=== PATIENT | male | born 1940 | race Two or more races ===

== ENCOUNTER → 2020-11-13 12:21 | Outpatient (BNVA) | payer MEDICARE, SELFPAY | PROVIDERS: PCP Family Medicine; Referring Provider Family Medicine; Visit Provider Student in an Organized Health Care Education/Training Program | DX: M25.531 Pain in right wrist (principal); M19.041 Primary osteoarthritis, right hand | CPT/HCPCS: 99202 ==

== ENCOUNTER 2021-06-18 09:20 | Outpatient (REF) | payer MEDICARE, SELFPAY ==
[2021-06-18 10:50] LABS: MANUAL DIFF FLAG NO
[2021-06-18 11:00] LABS: Basophils Absolute Auto 0.1 X10*3/uL (0.0-0.2); Basophils Percent Auto 0.7 % (0-2); Eosinophils Absolute Auto 0.2 X10*3/uL (0.0-0.4); Eosinophils Percent Auto 2.4 % (0-4); Hematocrit 38.5 % (42-52); Hemoglobin 12.9 g/dl (14.0-18.0); Imm Gran Abs Auto 0.01 X10*3/uL (0.00-0.03); Imm Gran Pct Auto 0.1 % (0.0-0.4); Lymphocytes Absolute Auto 2.3 X10*3/uL (1.2-4.9); Mean Corpuscular HGB Conc 33.5 g/dl (31.0-36.0); Mean Corpuscular Hemoglobin 33.7 pg (27.0-33.0); Mean Corpuscular Volume 100.5 fL (80-98); Mean Platelet Volume 10.8 fL (9.4-12.4); Monocytes Percent Auto 14.6 % (2-11); Neutrophils Absolute Auto 3.4 X10*3/uL (2.0-8.3); Neutrophils Percent Auto 49.2 % (45-73); Platelet Count 182 X10*3/uL (160-400); Red Blood Count 3.83 X10*6/uL (4.60-5.80); Red Cell Distribution Width 12.2 % (11.0-16.0); White Blood Count 6.9 X10*3/uL (4.8-10.8)
[2021-06-18 11:45] LABS: Anion Gap 11 (12-20); Blood Urea Nitrogen 15 mg/dL (9-16); Calcium 9.9 mg/dL (8.4-10.2); Carbon Dioxide 29 mmol/L (22-29); Chloride 103 mmol/L (96-108); Estimated Glomerular Filt Rate 51; Sodium 138 mmol/L (135-145)
[2021-06-18 12:06] LABS: Creatinine Urine 122.17 mg/dL; Protein/Creatinine Ratio, Ur 0.08 (<0.2); Total Protein Urine Random 10 mg/dL (<12)
== END 2021-06-18 09:21 | disposition home or self-care (01) ==
LOC: HO.LAB 09:20
PROVIDERS: Visit Provider Internal Medicine Hypertension Specialist
DX: N18.31 Chronic kidney disease, stage 3a (principal)
CPT/HCPCS: 36415; 80051; 82310; 82565; 84156; 84520; 85025

== ENCOUNTER 2022-11-27 08:39 | Outpatient (REF) | payer MEDICARE, SELFPAY ==
[2022-11-27 09:42] LABS: Hematocrit 37.7 % (42.0-52.0); Hemoglobin 12.3 g/dl (14.0-18.0); Mean Corpuscular HGB Conc 32.6 g/dl (31.0-36.0); Mean Corpuscular Volume 101.1 fL (80.0-98.0); Mean Platelet Volume 10.6 fL (9.4-12.4); Platelet Count 170 X10*3/uL (160-400); Red Blood Count 3.73 X10*6/uL (4.60-5.80); Red Cell Distribution Width 12.4 % (11.0-16.0); White Blood Count 6.8 X10*3/uL (4.8-10.8)
[2022-11-27 10:05] LABS: Anion Gap 9 (12-20); Blood Urea Nitrogen 18 mg/dL (9-16); Calcium 9.4 mg/dL (8.4-10.2); Carbon Dioxide 30 mmol/L (22-29); Chloride 105 mmol/L (96-108); Estimated Glomerular Filt Rate 53; Glucose Random 168 mg/dL (60-115); Potassium 4.5 mmol/L (3.3-5.1); Sodium 139 mmol/L (135-145)
== END 2022-11-27 08:40 | disposition home or self-care (01) ==
LOC: HO.LAB 08:39
PROVIDERS: Visit Provider Internal Medicine Hypertension Specialist
DX: I12.9 Hypertensive chronic kidney disease with stage 1 through stage 4 chronic kidney disease, or unspecified chronic kidney disease (principal); N18.9 Chronic kidney disease, unspecified
CPT/HCPCS: 36415; 80048; 85027

== ENCOUNTER 2023-10-29 08:35 | Outpatient (REF) | payer MEDICARE, SELFPAY | END 2023-10-29 08:36 | disposition home or self-care (01) | LOC: HO.HHCL 08:35 | PROVIDERS: Visit Provider Family Medicine | DX: I12.9 Hypertensive chronic kidney disease with stage 1 through stage 4 chronic kidney disease, or unspecified chronic kidney disease (principal); N18.30 Chronic kidney disease, stage 3 unspecified; E11.40 Type 2 diabetes mellitus with diabetic neuropathy, unspecified; D63.1 Anemia in chronic kidney disease | CPT/HCPCS: 36415; 80048; 80061; 80076; 82043; 82306; 82570; 82607; 82728; 82746; 83036; 83540; 84439; 84443; 85025 ==

== ENCOUNTER 2023-12-31 10:30 | Outpatient (AMB) | payer OTHER, SELFPAY ==
[2023-12-31 10:36] VITALS: BP 100/70; PULSE 70; O2SAT 95
--- NOTE | 2023-12-31 10:36 | HO.NEPHOV ---
HPI HPI Comments History of Present Illness Details 83 yr old man with HTN and DM with CKD Overall doing well BP is low [facility] Medical History (Updated 12/31/23 @ 10:48 by Gee Bello MD) Thoracic aortic aneurysm without rupture Diastolic dysfunction LVH (left ventricular hypertrophy) HTN (hypertension) Diabetes Surgical History H/O hernia repair Family History Mother CVD (cardiovascular disease) Sister Breast cancer Social History Alcohol intake: former Vital Signs 12/31/23 10:36 Weight 175 lb BP 100/70 Blood Pressure Location Rt brachial Position Sitting Pulse 70 Pulse Source Pulse Oximeter Pulse Oximetry (%) 95 Oxygen Delivery Method Room Air Physical Exam Vital Signs: Last Vital Signs Pulse 70 12/31/23 10:36 BP 100/70 12/31/23 10:36 Pulse Ox 95 12/31/23 10:36 Oxygen Delivery Method Room Air 12/31/23 10:36 Const General: comfortable Nutritional Appearance: well nourished Orientation/consciousness: patient oriented x3 HEENT Head: No normal to inspection Mouth: moist mucous membranes Neck Neck: Yes supple and Yes no JVD Resp Auscultation: clear to auscultation bilaterally, no rales and rub present Cardio Jugular venous distension: no JVD Palpation: no palpable S3 and no palpable S4 Heart sounds: no rubs GI Palpation (GI): Soft to palpation and nontender Percussion: No Fluid wave present General: Yes no CVA tenderness Back/Spine/Pelvis Back: no CVA tenderness Skin General skin exam: no rashes or lesions noted Neuro General: patient oriented x3 Extrem General: Yes no pedal edema and No clubbing Assessment & Plan Assessment & Plan (1) CKD (chronic kidney disease) stage 3, GFR 30-59 ml/min: Code(s): N18.30 - Chronic kidney disease, stage 3 unspecified Plan 83 yr old man wiht HTN and CKD Creatinine has worsened BP is relatively low NO significant proteinuria Probably due to hypoperfusion from low BP Will STOP LISINOPRIL 10mg REcheck renal panel in 4 weeks Orders: Orders Basic Metabolic Panel 4 Weeks N18.30 - Chronic kidney disease, stage 3 unspecified Coding Level of Care Code Est Pt Level 4 (21498) Diagnoses CKD (chronic kidney disease) stage 3, GFR 30-59 ml/min N18.30 Results Reviewed Nephrology Results: Hgb 13.4 g/dl (14.0-18.0) L 10/29/23 WBC 6.7 X10*3/uL (4.8-10.8) 10/29/23 Plt Count 185 X10*3/uL (160-400) 10/29/23 Sodium 139 mmol/L (135-145) 10/29/23 Potassium 4.6 mmol/L (3.3-5.1) 10/29/23 Chloride 104 mmol/L (96-108) 10/29/23 Carbon Dioxide 26 mmol/L (22-29) 10/29/23 BUN 20 mg/dL (9-16) H 10/29/23 Creatinine 1.61 mg/dL (0.5-1.4) H 10/29/23 Calcium 9.7 mg/dL (8.4-10.2) 10/29/23 Urine Creatinine 93.87 mg/dL 10/29/23 Protein/Creatinin Ratio 0.08 (<0.2) 06/18/21
== END 2023-12-31 10:54 | disposition home or self-care (01) ==
PROVIDERS: PCP Family Medicine; Visit Provider Internal Medicine Hypertension Specialist
DX: N18.30 Chronic kidney disease, stage 3 unspecified (principal)
CPT/HCPCS: 99214

== ENCOUNTER → 2023-12-31 10:30 | Outpatient (BNVA) | payer OTHER, SELFPAY | PROVIDERS: PCP Family Medicine; Visit Provider Internal Medicine Hypertension Specialist | DX: N18.30 Chronic kidney disease, stage 3 unspecified (principal) | CPT/HCPCS: 99212 ==

== ENCOUNTER 2024-03-03 08:50 | Outpatient (REF) | payer OTHER, SELFPAY ==
[2024-03-03 12:30] LABS: Anion Gap 13 (12-20); Blood Urea Nitrogen 15 mg/dL (9-16); Calcium 9.8 mg/dL (8.4-10.2); Carbon Dioxide 25 mmol/L (22-29); Chloride 106 mmol/L (96-108); Estimated Glomerular Filt Rate 56; Glucose Random 135 mg/dL (60-115); Potassium 4.6 mmol/L (3.3-5.1); Sodium 139 mmol/L (135-145)
== END 2024-03-03 08:51 | disposition home or self-care (01) ==
LOC: HO.HHCL 08:50
PROVIDERS: Visit Provider Internal Medicine Hypertension Specialist
DX: N18.30 Chronic kidney disease, stage 3 unspecified (principal)
CPT/HCPCS: 36415; 80048

== ENCOUNTER 2024-03-07 13:43 | Outpatient (AMB) | payer OTHER, SELFPAY ==
--- NOTE | 2024-03-07 13:49 | HO.NEPHOV_ITS ---
Vital Signs 03/07/24 13:50 Weight 171 lb BP 112/60 Blood Pressure Location Lt brachial Position Sitting Pulse 85 Pulse Source Pulse Oximeter Pulse Oximetry (%) 97 Oxygen Delivery Method Room Air Intake Visit Reasons: CKD/ 8 weeks fu/ Confirmed Caustic Pump Operator Required: Yes Caustic Pump Operator Name: Evette [id number] Accompanied by: Self / Same As Patient Allergies No Known Allergies Allergy (Mild, Verified 03/07/24 13:51) NONE HPI Comments Details: 83 yr old man with HTN and DM with CKD Overall doing well BP was low Lisinopril was stopped ,No issues today [facility] Medical History (Updated 12/31/23 @ 10:48 by Gee Bello MD) Thoracic aortic aneurysm without rupture Diastolic dysfunction LVH (left ventricular hypertrophy) HTN (hypertension) Diabetes Surgical History H/O hernia repair Family History Mother CVD (cardiovascular disease) Sister Breast cancer Social History Alcohol intake: former Physical Exam Vital Signs: Last Vital Signs Pulse 85 03/07/24 13:50 BP 112/60 03/07/24 13:50 Pulse Ox 97 03/07/24 13:50 Oxygen Delivery Method Room Air 03/07/24 13:50 Const General: comfortable Nutritional Appearance: well nourished Orientation/consciousness: patient oriented x3 HEENT Head: No normal to inspection Mouth: moist mucous membranes Neck Neck: Yes supple and Yes no JVD Resp Auscultation: clear to auscultation bilaterally, no rales and rub present Cardio Jugular venous distension: no JVD Palpation: no palpable S3 and no palpable S4 Heart sounds: no rubs GI Palpation (GI): Soft to palpation and nontender Percussion: No Fluid wave present General: Yes no CVA tenderness Back/Spine/Pelvis Back: no CVA tenderness Skin General skin exam: no rashes or lesions noted Neuro General: patient oriented x3 Extrem General: Yes no pedal edema and No clubbing Results Reviewed Nephrology Results: Hgb 13.4 g/dl (14.0-18.0) L 10/29/23 WBC 6.7 X10*3/uL (4.8-10.8) 10/29/23 Plt Count 185 X10*3/uL (160-400) 10/29/23 Sodium 139 mmol/L (135-145) 03/03/24 Potassium 4.6 mmol/L (3.3-5.1) 03/03/24 Chloride 106 mmol/L (96-108) 03/03/24 Carbon Dioxide 25 mmol/L (22-29) 03/03/24 BUN 15 mg/dL (9-16) 03/03/24 Creatinine 1.24 mg/dL (0.5-1.4) 03/03/24 Calcium 9.8 mg/dL (8.4-10.2) 03/03/24 Urine Creatinine 93.87 mg/dL 10/29/23 Protein/Creatinin Ratio 0.08 (<0.2) 06/18/21 Assessment & Plan Assessment & Plan (1) CKD (chronic kidney disease) stage 3, GFR 30-59 ml/min: Code(s): N18.30 - Chronic kidney disease, stage 3 unspecified Category: Medical Plan 83 yr old man wiht HTN and CKD Creatinine is back to baseline after stopping Lisinopril BP is better controlled NO significant proteinuria Keep BP < 130/80 Avoid nephrotoxins Stay on low salt diet Coding Level of Care Code Est Pt Level 4 (00743) Diagnoses CKD (chronic kidney disease) stage 3, GFR 30-59 ml/min N18.30
[2024-03-07 13:50] VITALS: BP 112/60; PULSE 85; O2SAT 97
== END 2024-03-07 14:07 | disposition home or self-care (01) ==
PROVIDERS: PCP Family Medicine; Visit Provider Internal Medicine Hypertension Specialist
DX: N18.30 Chronic kidney disease, stage 3 unspecified (principal)
CPT/HCPCS: 99214

== ENCOUNTER → 2024-03-07 13:43 | Outpatient (BNVA) | payer OTHER, SELFPAY | PROVIDERS: PCP Family Medicine; Visit Provider Internal Medicine Hypertension Specialist | DX: E11.22 Type 2 diabetes mellitus with diabetic chronic kidney disease (principal); I12.9 Hypertensive chronic kidney disease with stage 1 through stage 4 chronic kidney disease, or unspecified chronic kidney disease; N18.30 Chronic kidney disease, stage 3 unspecified | CPT/HCPCS: 99212 ==

== ENCOUNTER → 2024-04-15 14:30 | Outpatient (REF) | payer OTHER, SELFPAY ==
--- NOTE | 2024-04-15 14:33 | CA_ITS ---
Transthoracic Echocardiogram Patient (Last, First, Middle): Car Hartmann, Gender: Male Date of : 1940 Age: 83 Procedure Date: 04/15/2024 Procedure Type: Transthoracic Echocardiogram Location: OP Height: 172.72 cm Weight: 77.57 kg BSA: 1.91 m2 Heart Rate: 84 bpm BP: 132 / 80 mmHg Instructional Paraprofessional: Referring MD: Eva Rosas DO Symptoms: HTN, I10 Study Quality: Adequate w contrast ECG Rhythm: Sinus Conclusions: - Normal left ventricular size and systolic function. There is moderately increased left ventricular wall thickness. The visually estimated ejection fraction is between 55-60%. - Normal right ventricular cavity size and systolic function. Findings Procedure Information Contrast agent, definity, is being given per protocol without apparent complications. Left Ventricle Normal left ventricular size and systolic function. There is moderately increased left ventricular wall thickness. The visually estimated ejection fraction is between 55-60%. There is no evidence of regional wall motion abnormalities. There is paradoxical septal motion consistent with a left bundle branch block. Diastolic function is indeterminate on the basis of available data. Right Ventricle Normal right ventricular cavity size and systolic function. Atria The left atrium is normal in size. Aortic Valve There is a normal trileaflet aortic valve. There is mild calcification of the aortic valve. There is no aortic valve stenosis. There is no aortic valve regurgitation. Mitral Valve The mitral valve appears normal. There is no mitral valve regurgitation. There is no mitral valve stenosis. Pulmonic Valve The pulmonic valve is likely normal. Tricuspid Valve Normal tricuspid valve structure. There is trace tricuspid valve regurgitation. Normal right atrial pressure. There is no evidence of pulmonary hypertension. Great Vessels All visible segments of the aorta are normal in size. The visualized portions of the pulmonary artery and branches are normal. Venous The inferior vena cava is normal in size and collapses greater than 50% with inspiration. Pericardium/Pleural There is no evidence of pericardial effusion. Prior Study Comparison No significant change compared to prior study dated: 08/29/2019. Measurements 2D Linear Measurements IVSd: 1.30 0.6-0.9/0.6-1.0 cm LVIDd: 4.33 3.9-5.3/4.2-5.9 cm LVIDd Index: 2.27 2.4-3.2/2.2-3.1 cm/m2 LVIDs: 3.19 2.0-3.6 cm LVPWd: 1.27 0.7-1.1 cm LA Diam: 3.20 2.7-3.8/3.0-4.0 cm LAIDs Index: 1.68 1.5-2.3 cm/m2 LV Mass: 257.22 67-162/88-224 g LV Mass Index: 134.67 43-95/49-115 g/m2 LVOT Diam: 2.00 3.0+(-)1.3 cm 2D Systolic Function EF 4C: 68.00 >55% EF 2C: 59.90 >55% EF BiP: 63.00 >55% Mitral Valve MV Pk E: 0.47 MV PK A: 0.94 MV Decel Time: 103.00 E/A: 0.50 E'Lateral: 7.83 E'Medial: 4.79 E/E' Med: 9.70 E/E' Lat: 6.00 PHT: 30.00 MVA PHT: 7.33 Decel Wetzel: 4.53 Aortic Valve AoV Pk Conner: 1.42 AoV Mn Conner: 0.98 AoV VTI: 0.26 AoV Pk Grad: 8.00 Aov Mn Grad: 4.00 LANA Cont.VTI: 2.12 LVOT LVOT Pk Conner: 0.93 LVOT Mn Conner: 0.59 LVOT VTI: 0.18 LVOT Pk Grad: 3.00 LVOT Mn Grad: 2.00 LVOT Diam: 2.00 LVOT Area: 3.14 Diastolic Function MV Pk E: 0.47 MV Pk A: 0.94 E/A: 0.50 E'Medial: 4.79 E/E' Med: 9.70 E' Laterial: 7.83 E/E' Lat: 6.00 Right Ventricle TAPSE (mm): 24.40 TVS' Conner: 11.50 Tricuspid Valve TR Pk Conner: 2.25 TR Pk Grad: 20.00 RA Press: 3.00 RVSP: 23.00 Great Vessels Aorta Sinus of Valsalva: 3.60 2.0-3.5 cm Ao Asc: 3.40 2.1-3.4 cm Pulmonary Valve PV Pk Conner: 1.07 Peak PV Grad: 5.00 Updated in Other Vendor System with Status of Final Lee Santos MD electronically signed on 04/16/2024 8:39:42 PM with status of Final
== END ==
LOC: HO.CARD 14:30
PROVIDERS: PCP Family Medicine; Visit Provider Family Medicine
DX: I10 Essential (primary) hypertension (principal)
CPT/HCPCS: 93306; Q9957

== ENCOUNTER → 2024-04-15 14:33 | Outpatient (BNV) | payer OTHER, SELFPAY | PROVIDERS: PCP Family Medicine; Visit Provider Internal Medicine Cardiovascular Disease | DX: I35.8 Other nonrheumatic aortic valve disorders (principal) | CPT/HCPCS: 93306 ==

== ENCOUNTER 2024-06-24 09:24 | Outpatient (REF) | payer OTHER, SELFPAY ==
[2024-06-24 11:10] LABS: MANUAL DIFF FLAG NO
[2024-06-24 11:22] LABS: Basophils Absolute Auto 0.1 X10*3/uL (0.0-0.2); Basophils Percent Auto 0.8 % (0-2); Eosinophils Absolute Auto 0.2 X10*3/uL (0.0-0.4); Eosinophils Percent Auto 2.2 % (0-4); Hematocrit 40.5 % (42.0-52.0); Hemoglobin 13.4 g/dl (14.0-18.0); Imm Gran Abs Auto 0.03 X10*3/uL (0.00-0.03); Imm Gran Pct Auto 0.4 % (0.0-0.4); Lymphocytes Absolute Auto 2.2 X10*3/uL (1.2-4.9); Lymphocytes Percent Auto 27.8 % (20-40); Mean Corpuscular HGB Conc 33.1 g/dl (31.0-36.0); Mean Corpuscular Hemoglobin 33.6 pg (27.0-33.0); Mean Corpuscular Volume 101.5 fL (80.0-98.0); Mean Platelet Volume 10.9 fL (9.4-12.4); Monocytes Absolute Auto 1.2 X10*3/uL (0.1-1.2); Monocytes Percent Auto 15.8 % (2-11); Neutrophils Absolute Auto 4.1 x10*3/uL (2.0-8.3); Platelet Count 187 X10*3/uL (160-400); Red Blood Count 3.99 X10*6/uL (4.60-5.80); Red Cell Distribution Width 13.1 % (11.0-16.0); White Blood Count 7.7 X10*3/uL (4.8-10.8)
[2024-06-24 11:55] LABS: Alanine Aminotransferase 17 U/L (0-40); Albumin Level 4.3 g/dL (3.5-5.0); Alkaline Phosphatase 109 U/L (39-117); Anion Gap 9 (12-20); Aspartate Amino Transferase 15 U/L (5-37); Bilirubin Total 0.7 mg/dL (0.0-1.0); Blood Urea Nitrogen 18 mg/dL (9-16); Calcium 9.9 mg/dL (8.4-10.2); Carbon Dioxide 29 mmol/L (22-29); Chloride 104 mmol/L (96-108); Estimated Glomerular Filt Rate 50; Glucose Random 144 mg/dL (60-115); Iron 86 mcg/dL (45-160); Percent Iron Saturation 37 % (15-50); Potassium 4.1 mmol/L (3.3-5.1); Sodium 138 mmol/L (135-145); Total Iron Binding Capacity 231 mcg/dL (228-428); Total Protein 7.8 g/dL (6.5-8.0); Unsaturated Iron Binding 145 ug/dL
[2024-06-24 12:16] LABS: Ferritin 586 ng/mL (20-250)
== END 2024-06-24 09:25 | disposition home or self-care (01) ==
LOC: HO.HHCL 09:24
PROVIDERS: PCP Family Medicine; Visit Provider Internal Medicine Medical Oncology
DX: R79.89 Other specified abnormal findings of blood chemistry (principal); R19.5 Other fecal abnormalities
CPT/HCPCS: 36415; 80053; 82728; 83540; 85025

== ENCOUNTER → 2024-07-05 10:34 | Outpatient (RCR) | payer MEDICARE, SELFPAY ==
--- NOTE | 2021-07-12 09:50 | P.CNHO_ITS ---
Subjective - Subjective Chief complaint: Consult for: Elevated ferritin level. Patient: new to practice Consult date: 07/12/21 Requesting Physician: Chriss Primary Care Provider: Eva Rosas DO Medical Summary: DIAGNOSIS: Elevated ferritin level. HPI - Consult Narrative Reason for consult: Consult for: Elevated ferritin level. Narrative: Car Hartmann is a pleasant 80 year old gentleman, he was noted to have an elevated ferritin level. Back in October, ferritin was 575. He denies any known family history of hemachromatosis. He used to drink heavily quit in 2005. ROS: He denies easy fatigability. No fever nor chills. Appetite is good however he walks a lot. He lost a little weight. He denies any headache no dizziness. No chest pain or trouble breathing. Sometimes he gets reflux symptoms. No abdominal pain nausea or vomiting. Denies diarrhea. Denies gross blood in the stools. He denies any urinary complaints. He does follow with Urology. Denies joint pain or muscle pain. Denies focal weakness No skin rashes nor pruritus. Family history: Two sisters have breast cancer. 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 He is not . Has no children. He denies smoking. He used to drink alcohol starting 11:00 till 03:00. He quit in 2005. Review of Systems - Constitutional Reports system reviewed and no additional complaints, except as documented - Eyes Reports system reviewed and no additional complaints, except as documented - ENT Reports system reviewed and no additional complaints, except as documented - Cardiovascular Reports system reviewed and no additional complaints, except as documented - Respiratory Reports no additional respiratory complaints - Gastrointestinal Reports system reviewed and no additional complaints, except as documented - Genitourinary Genitourinary: Reports no additional male genitourinary complaints - Musculoskeletal Reports system reviewed and no additional complaints, except as documented - Integumentary/Breasts Skin/Breast: Reports no additional skin complaints - Neurologic Reports system reviewed and no additional complaints, except as documented - Psychiatric Reports system reviewed and no additional complaints, except as documented - Endocrine Reports no additional endocrine complaints - Hematologic/Lymphatic Reports system reviewed and no additional complaints, except as documented - Allergic/Immunologic Reports system reviewed and no additional complaints, except as documented Oncology Screenings - ECOG Performance Status ECOG Performance Status: 0 [facility] Medical History: Medical History (Last Updated 11/13/20 @ 12:31 by Maureen Self CMA) Diabetes Diastolic dysfunction HTN (hypertension) LVH (left ventricular hypertrophy) Thoracic aortic aneurysm without rupture Functional capacity: independent ambulation Patient : No Family History: Family History (Last Reviewed 11/13/20 @ 12:37 by Misha Jamison MD) Mother CVD (cardiovascular disease) Sister Breast cancer Surgical History: Surgical History (Last Reviewed 11/13/20 @ 12:37 by Misha Jamison MD) H/O hernia repair Social History: Social History (Last Reviewed 11/13/20 @ 12:37 by Misha Jamison MD) Alcohol History: Alcohol intake: former Nutrition Assessment: Patient : No Home Medications and Allergies Home Medications Medication Instructions Recorded Confirmed Type aspirin 81 mg tablet,delayed 81 mg PO DAILY 11/13/20 History release atorvastatin 40 mg tablet 40 mg PO DAILY 11/13/20 History lisinopril 10 mg tablet 10 mg PO DAILY 11/13/20 History metoprolol succinate 50 mg 50 mg PO DAILY 11/13/20 History tablet,extended release 24 hr (Toprol XL) Allergies Allergy/AdvReac Type Severity Reaction Status Date / Time No Known Allergies Allergy Mild NONE Verified 11/13/20 12:27 Physical Exam - Constitutional Present: no acute distress - Routine HEENT Exam Head: Present: normal inspection ENT: Present: mucous membranes moist - Routine Neck Exam Present: supple - Routine Respiratory Exam Present: CTAB - Routine Cardiovascular Exam Cardiovascular: Present: RRR, S1, S2 - Routine Abdominal Exam Present: normal bowel sounds, nontender. Absent: organomegaly - Routine Extremities Exam Present: nontender - Routine Skin Exam Present: intact, normal turgor - Routine Neurological Exam Present: alert, oriented X3 - Detailed Neurological Exam: Coma Scale Eye Opening: Spontaneous (4) Verbal Response: Oriented (5) - Routine Psychiatric Exam Present: normal affect Hem/Onc Consult Result - Labs CBC & Chem 7: 07/12/21 10:24 07/12/21 10:24 Assessment and Plan Patient Active problem list reviewed?: Yes (1) Elevated ferritin level Status: Acute Assessment and plan: This is a pleasant 80-year-old gentleman, with previous history of alcohol abuse, he has been noted to have an elevated ferritin level. Serial ferritins: 648 in 09/12. 576 on 12/14. Iron studies from today: 99/276/36/527. DIFFERENTIAL DIAGNOSIS: 1. HEMOCHROMATOSIS: Less likely, iron saturation is not elevated. 2. ALCOHOL-RELATED LIVER DISEASE: Can lead to elevated ferritin level. 3. ACUTE PHASE REACTANT: There is no obvious underlying infections/inflammatory disorder to explain it. PLAN: I will proceed with further evaluation. I will check a hemochromatosis DNA. Check ferritin level: 527. Check iron studies: 99/276/36. Iron saturation is not elevated, so doubt he has any significant hemochromatosis. If he indeed has hemochromatosis, will set him up for therapeutic phlebotomy. He will return in 3 months for a follow-up visit. Thank you, CC: Dr. Banerjee. Dr. Jamison. 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 In the absence of evidence of iron overload this is most likely indicates that this individual is in H if the care ear. This result reduces the likelihood of hit it tree hemochromatosis. - Time Spent With Patient Time Spent with Patient (in minutes): 35
[2021-07-12 10:02] VITALS: BP 154/77; PULSE 69; RESP 14; TEMP 36.5; BMI 28.0
[2021-07-12 10:56] LABS: Hemoglobin 13.2 g/dl (14.0-18.0); MANUAL DIFF FLAG SCAN; PLT CLUMP 1; Red Cell Distribution Width 12.1 % (11.0-16.0); SCAN SMEAR FLAG 1
[2021-07-12 10:58] LABS: Basophils Absolute Auto 0.1 X10*3/uL (0.0-0.2); Basophils Percent Auto 0.7 % (0-2); Eosinophils Absolute Auto 0.2 X10*3/uL (0.0-0.4); Eosinophils Percent Auto 2.1 % (0-4); Hematocrit 39.2 % (42-52); Imm Gran Abs Auto 0.02 X10*3/uL (0.00-0.03); Imm Gran Pct Auto 0.3 % (0.0-0.4); Lymphocytes Absolute Auto 1.9 X10*3/uL (1.2-4.9); Lymphocytes Percent Auto 25.8 % (20-40); Mean Corpuscular HGB Conc 33.7 g/dl (31.0-36.0); Mean Corpuscular Hemoglobin 33.6 pg (27.0-33.0); Mean Corpuscular Volume 99.7 fL (80-98); Monocytes Percent Auto 14.2 % (2-11); Neutrophils Absolute Auto 4.1 X10*3/uL (2.0-8.3); Neutrophils Percent Auto 56.9 % (45-73); Red Blood Count 3.93 X10*6/uL (4.60-5.80); White Blood Count 7.2 X10*3/uL (4.8-10.8)
[2021-07-12 11:19] LABS: Platelet Count 133 X10*3/uL (160-400)
[2021-07-12 11:20] LABS: SLIDE REVIEW VERIFIED
[2021-07-12 11:26] LABS: Alanine Aminotransferase 25 U/L (0-40); Albumin Level 4.6 g/dL (3.5-5.0); Alkaline Phosphatase 99 U/L (39-117); Anion Gap 12 (12-20); Aspartate Amino Transferase 19 U/L (5-37); Bilirubin Total 0.9 mg/dL (0.0-1.0); Blood Urea Nitrogen 17 mg/dL (9-16); Calcium 10.3 mg/dL (8.4-10.2); Carbon Dioxide 28 mmol/L (22-29); Chloride 102 mmol/L (96-108); Creatinine Clr Calc Pharmacy 46.2; Estimated Glomerular Filt Rate 51; Glucose Random 162 mg/dL (60-115); Iron 99 mcg/dL (45-160); Percent Iron Saturation 36 % (15-50); Potassium 5.1 mmol/L (3.3-5.1); Sodium 137 mmol/L (135-145); Total Iron Binding Capacity 276 mcg/dL (228-428); Total Protein 7.7 g/dL (6.5-8.0); Unsaturated Iron Binding 177 ug/dL
[2021-07-12 11:30] LABS: Ferritin 527 ng/mL (20-250)
--- NOTE | 2021-07-12 15:59 | MHC.HEMONCMA ---
pt came in for hem f/u and states they are doing well. Clinical summary was updated and labs were drawn. pt will be in 3 months on 10/14/2021 for f/u apt.
== END | disposition home or self-care (01) ==
LOC: HO.ONC 07-12 08:48
PROVIDERS: Internal Medicine Medical Oncology; PCP Family Medicine; Referring Provider Family Medicine; Visit Provider Internal Medicine
DX: R79.89 Other specified abnormal findings of blood chemistry (principal)
CPT/HCPCS: 36415; 80053; 81256; 82728; 83540; 85025; 99204

== ENCOUNTER 2024-09-05 12:33 | Outpatient (AMB) | payer OTHER, SELFPAY ==
[2024-09-05 13:26] VITALS: BP 108/60; PULSE 82; O2SAT 96; BMI 26.9
--- NOTE | 2024-09-05 13:26 | HO.NEPHOV ---
Vital Signs 09/05/24 13:26 Height 5 ft 9 in Weight 182 lb BMI 26.9 BP 108/60 Blood Pressure Location Lt brachial Position Sitting Pulse 82 Pulse Source Pulse Oximeter Pulse Oximetry (%) 96 Oxygen Delivery Method Room Air Intake Visit Reasons: CKD/ 6 MO FU/ Conf Nurse Navigator Required: Yes Nurse Navigator Name: [id number] Anna Marie Accompanied by: Self / Same As Patient Allergies No Known Allergies Allergy (Mild, Verified 09/05/24 13:26) NONE Medication List - Last Reconciled 09/05/24 by Gee Bello MD aspirin 81 mg PO DAILY atorvastatin 40 mg PO DAILY cholecalciferol (vitamin D3) 50 mcg PO DAILY cyanocobalamin (vitamin B-12) 1,000 mcg PO DAILY empagliflozin (Jardiance) 25 mg PO DAILY metoprolol succinate ER (Toprol XL) 50 mg PO DAILY HPI Comments Details: 83 yr old man with HTN and DM with CKD Overall doing well BP was low Lisinopril was stopped ,No issues today [facility] Medical History (Updated 12/31/23 @ 10:48 by Gee Bello MD) Thoracic aortic aneurysm without rupture Diastolic dysfunction LVH (left ventricular hypertrophy) HTN (hypertension) Diabetes Surgical History H/O hernia repair Family History Mother CVD (cardiovascular disease) Sister Breast cancer Social History Alcohol intake: former Physical Exam Vital Signs: Last Vital Signs Pulse 82 09/05/24 13:26 BP 108/60 09/05/24 13:26 Pulse Ox 96 09/05/24 13:26 Oxygen Delivery Method Room Air 09/05/24 13:26 BMI result Body Mass Index 26.9 Results Reviewed Nephrology Results: Hgb 13.4 g/dl (14.0-18.0) L 06/24/24 WBC 7.7 X10*3/uL (4.8-10.8) 06/24/24 Plt Count 187 X10*3/uL (160-400) 06/24/24 Sodium 138 mmol/L (135-145) 06/24/24 Potassium 4.1 mmol/L (3.3-5.1) 06/24/24 Chloride 104 mmol/L (96-108) 06/24/24 Carbon Dioxide 29 mmol/L (22-29) 06/24/24 BUN 18 mg/dL (9-16) H 06/24/24 Creatinine 1.35 mg/dL (0.5-1.4) 06/24/24 Calcium 9.9 mg/dL (8.4-10.2) 06/24/24 Urine Creatinine 93.87 mg/dL 10/29/23 Assessment & Plan Assessment & Plan (1) CKD (chronic kidney disease) stage 3, GFR 30-59 ml/min: Code(s): N18.30 - Chronic kidney disease, stage 3 unspecified Category: Medical Plan 83 yr old man with HTN and CKD Creatinine is back to baseline after stopping Lisinopril BP is better controlled NO significant proteinuria Keep BP < 130/80 Avoid nephrotoxins Stay on low salt diet Encouraged to increase PO fluids Would benefit from SGLT-2 inhibitors Orders: Orders Electrolytes 6 Months N18.30 - Chronic kidney disease, stage 3 unspecified Blood Urea Nitrogen 6 Months N18.30 - Chronic kidney disease, stage 3 unspecified Creatinine 6 Months N18.30 - Chronic kidney disease, stage 3 unspecified Calcium 6 Months N18.30 - Chronic kidney disease, stage 3 unspecified Complete Blood Count no Diff 6 Months N18.30 - Chronic kidney disease, stage 3 unspecified Coding Level of Care Code Est Pt Level 3 (95940) Diagnoses CKD (chronic kidney disease) stage 3, GFR 30-59 ml/min N18.30
== END 2024-09-05 13:36 | disposition home or self-care (01) ==
PROVIDERS: PCP Family Medicine; Visit Provider Internal Medicine Hypertension Specialist
DX: I12.9 Hypertensive chronic kidney disease with stage 1 through stage 4 chronic kidney disease, or unspecified chronic kidney disease (principal); N18.30 Chronic kidney disease, stage 3 unspecified
CPT/HCPCS: 99213

== ENCOUNTER → 2024-09-05 12:33 | Outpatient (BNVA) | payer OTHER, SELFPAY | PROVIDERS: PCP Family Medicine; Visit Provider Internal Medicine Hypertension Specialist | DX: E11.22 Type 2 diabetes mellitus with diabetic chronic kidney disease (principal); I12.9 Hypertensive chronic kidney disease with stage 1 through stage 4 chronic kidney disease, or unspecified chronic kidney disease; N18.30 Chronic kidney disease, stage 3 unspecified | CPT/HCPCS: 99212 ==

== ENCOUNTER 2025-02-17 11:11 | Outpatient (REF) | payer OTHER, SELFPAY ==
--- OUTSIDE RECORDS SUMMARY | 2025-02-17 12:01 | XMS_ITS | Encounter Summary ---
Author Organization [employer] Address [address] [place] [address] Care Team Providers Care Cushion Worker Name Role Phone Eva Rosas DO Primary Care Provider + [phone] Angela Maki PharmD Unavailable [phone] Reason for Visit * Reason Comments Med Refill Encounter Details Date Type Department Care Team (Late st Contact Info) Description 09/29/2023 Refill [facility] [address] [place] [address] Eva Rosas DO [address] [place], [place] [id number] Hypertension, unspecified type Social History Tobacco Use Types Packs/Day Years Used Date Smoking Tobacco: Never Passive Smoke Exposure: Never Alcohol Use Standard Drinks/Week Comments Never 0 (1 standard drink = 0.6 oz pur e alcohol) Depression Answer Date Recorded Patient Health Questionnaire-9 Score 0 10/31/2022 Housing Stability Answer Date Recorded What is your housing situation today? I have nohemy caro 08/17/[address] you li ve. Do you have problems with any of the following? None of the above 08/17/2023 Food Insecurity Answer Date Recorded Within the past 12 months, y ou worried that your food would run out before you got money to buy more: Never True 08/17/2023 Within the past 12 months,th e food you bought just didn't last and you didn't have enough money to get more: Never True Transportation Answer Date Recorded In the past 12 months, has l ack of transportation kept you from medical appts, meetings, work or from getting things needed for daily living? Yes, it has kept me from medical appointments or getting medications. 08/03/2023 Utilities Answer Date Recorded In the past 12 months, has t he electric, gas, oil or water company threatened to shut off services in your home? No 08/17/2023 Depression Answer Date Recorded Patient Health Questionnaire-2 Score 0 03/10/2023 Sex and Gender Information Value Date Recorded Sex Assigned at Male 08/25/2022 10:19 AM EDT Legal Sex Male 10:19 AM EDT Gender Identity Male 08/25/2022 10:19 AM EDT Sexual Orientation Straight 08/25/2022 10 :19 AM EDT documented as of this encounter Plan of Treatment Upcoming Encounters Date Type Department Care Team (Late st Contact Info) Description 02/21/2025 11:15 AM EDT Office Visit [facility] [address] [place] [address] Eva Rosas DO [address] [place] [address] documented as of this encounter Visit Diagnoses Diagnosis Hypertension, unspecified type documented in this encounter Additional Health Concerns Assessment Noted Time PHQ-9 Depression Total Score: 0 10/31/19 23 11:46 AM EST documented as of this encounter Care Teams Cushion Worker Relationship Specialty Start Date End Date Eva Rosas DO [address] [place] [id number] PCP - General Family Medicine 10/08/12 Angela Maki PharmD [address] [place] [id number] Pharmacist Internal Medicine 10/27/23 01/26/24 documented as of this encounter
--- OUTSIDE RECORDS SUMMARY | 2025-02-17 12:01 | XMS_ITS | Clinical Summary ---
Author Organization [facility] Address [address] [place] [address] Phone Care Team Providers Care Knife Setter Assembler Name Role Phone Lakshmi Rosasfer Primary Care Provider Unava ilable Allergies No known active allergies Medications * This document contains information received from the source organization and may not represent a complete record from that organization. aspirin (ST BRYON) 81 MG EC tablet Take 1 tablet by mouth 1 (one) time each day Active atorvastatin (LIPITOR) 40 MG tablet Take 40 mg by mouth at bed time 01/01/2021 Active Cholecalciferol (Vitamin D3) 50 MCG (1999) tablet Take 1 tablet by mouth 12/05/2020 Active metoprolol succinate XL (TOPROL-XL) 100 MG 24 hr tablet Take 100 mg by mouth 12/05/2020 Active TRUEplus Lancets 33G misc 10/09/2021 Active lisinopril 10 MG tabletIndication s:Chronic kidney disease stage 3 (HCC),Hypertensi ve chronic kidney disease, unspecified, with chronic kidney disease stage I through stage IV, or unspecified,Stag e 3a chronic kidney disease (HCC) Take 1 tablet (10 mg total) by mouth 1 (one) time each day 90 tablet 3 03/12/2023 Active Active Problems Problem Noted Date Diagnosed Date Chronic kidney disease stage 3 02/06/2021 Essential hypertension 02/06/2021 Family History Medical History Relation Comments Heart disease Mother Relation Status Comments Father Mother Social History Tobacco Use Types Packs/Day Years Used Date Smoking Tobacco: Never Smokeless Tobacco: Never Sex and Gender Information Value Date Recorded Sex Assigned at Not on file Legal Sex Male 4:55 PM EST Gender Identity Not on file Sexual Orientation Not on file Last Filed Vital Signs Vital Sign Reading Time Taken Comments Blood Pressure 122/60 12/15/2022 12:33 PM EST Pulse 62 12/15/2022 12:33 PM EST Temperature - - Respiratory Rate - - Oxygen Saturation 98% 12/15/2022 12: 33 PM EST Inhaled Oxygen Concentration - - Weight 86.1 kg (189 lb 12.8 oz) 023 12:33 PM EST Height 180.3 cm (5' 11 ) 12/15/2022 12: 33 PM EST Body Mass Index 26.47 12/15/2022 12:33 PM EST Plan of Treatment Health Maintenance Due Date Last Done Comments Diabetes: Ophthalmology Exam 12/15/2022 Diabetes: Pedal Pulse Checked 12/15/2022 Diabetes: Sensory Foot Exam 12/15/2022 Diabetes: Visual Foot Exam 12/15/2022 Diabetes: Hemoglobin A1C 02/01/2023 11/03/2022, 03/2023 Influenza Vaccine (Season Ended) 2025 07/14/2019, 09/07/2018, 08/28/2017, Additional history exists Pneumococcal Vaccine: 50+ Years Completed 05/30/2015, 04/05/2009 Pneumococcal Vaccine: Peds (0 to 5 Years) and At-Risk Patients (6 to 49 Years) Discontinued 05/30/2015, 04/05/2009 Hepatitis B Vaccine Aged Out 08/27/2015, 04/04/2015, 02/26/2015 No longer eligible based on patient's age to complete this topic Insurance [facility] ([id number]) JESSICA LYONS [id number] [place] [id number] [facility] ([id number]) JESSICA LYONS [id number] Care Teams Knife Setter Assembler Relationship Specialty Start Date End Date Eva Rosas DO PCP - General 11/05/20
--- OUTSIDE RECORDS SUMMARY | 2025-02-17 12:01 | XMS_ITS | Encounter Summary ---
Author Organization [employer] Address [address] [facility] 7[address] [place] [address] Care Team Providers Care Differential Tester Name Role Phone Eva Rosas DO Primary Care Provider [phone] Angela Maki PharmD Unavailable [phone] Encounter Details Date Type Department Care Team (Late st Contact Info) Description 10/28/[address] [facility] [address] [place] [address] Eva Rosas DO [address] [place] [address] Social History Tobacco Use Types Packs/Day Years [...] Description 02/21/2025 11:15 AM EDT Office Visit [facility] [address] [place] [address] Eva Rosas DO [address] [place] [address] documented as of this encounter Goals Goal Patient Goal Type Associated Problems Recent Progress Patient-Stated? Author Hemoglobin A1c < 8 Result Component 7.5( 11:57 AM EDT) No Angela Maki, PharmD Record your blood sugar as directed Result Component No Angela Maki, PharmD documented as of this encounter Visit Diagnoses Not on filedocumented in this encounter Additional Health Concerns Assessment Noted Time PHQ-9 Depression Total Score: 0 10/31/19 23 11:46 AM EST documented as of this encounter Care Teams Differential Tester Relationship Specialty Start Date End Date Eva Rosas DO [address] [place] [phone] PCP - General Family Medicine 10/08/12 Angela Maki, PharmD [address] [place] [phone] Pharmacist Internal Medicine 10/27/23 01/26/24 documented as of this encounter
--- OUTSIDE RECORDS SUMMARY | 2025-02-17 12:01 | XMS_ITS | Clinical Summary ---
Author Organization [employer] Address [address] [facility] [address] [place] [address] Care Team Providers Care Tier Lift Truck Operator Name Role Phone AlisonEva Primary Care Provider [phone] Allergies No known active allergies Medications Alcohol Swabs (Alcohol Prep) 70 % pads USE DIRECTED DAILY DIRECTED 100 each 11 4 Active TRUEplus Lancets 33G miscIndications: Type 2 diabetes mellitus with diabetic neuropathy, unspecified whether termite control technician insulin use (CMS/HCC) TEST BLOOD SUGAR 3 TIMES A DAY 100 each 11 4 Active atorvastatin (Lipitor) 40 MG tablet TAKE 1 TABLET BY MOUTH AT BEDTIME 30 tablet 5 4 Active metoprolol succinate XL (Toprol-XL) 100 MG 24 hr tabletIndication s:Hypertension, unspecified type TAKE 1 TABLET BY MOUTH EVERY MORNING 90 tablet 3 4 Active Blood Glucose Monitoring Suppl (FreeStyle [place] Lite) w/Device kit TEST BLOOD SUGAR ONCE DAILY DIRECTED 1 kit 4 Active Jardiance 25 MG TAKE 1 TABLET BY MOUTH EVERY MORNING 30 tablet 5 5 Active Tradjenta 5 MG tabletIndication s:Type 2 diabetes mellitus with diabetic neuropathy, unspecified whether termite control technician insulin use (CMS/HCC) TAKE 1 TABLET BY MOUTH EVERY MORNING 30 tablet 11 5 Active cyanocobalamin (Vitamin B-12) 1000 MCG tablet TAKE 1 TABLET BY MOUTH EVERY MORNING 30 tablet 11 5 Active FREESTYLE LITE test stripIndications :Type 2 diabetes mellitus with diabetic nephropathy, unspecified whether termite control technician insulin use (CMS/HCC) USE DIRECTED TO TEST BLOOD SUGAR THREE TIMES DAILY 100 strip 11 5 Active cholecalciferol VITAMIN D (Vitamin D-3) 50 MCG (1999 [place]) tabletIndication s:Vitamin D deficiency TAKE 1 TABLET BY MOUTH EVERY MORNING 90 tablet 1 5 Active Active Problems Problem Noted Date Diagnosed Date Anemia 06/23/2024 Vitamin B12 deficiency 06/09/2017 Diabetic neuropathy 08/27/2015 Diastolic dysfunction 08/27/2015 Essential hypertension 08/27/2015 Hyperlipidemia 08/27/2015 Hypertensive heart disease 08/27/2015 Left ventricular hypertrophy 08/27/2015 Stage 3 chronic kidney disease 08/27/2015 Tubular adenoma of colon 08/27/2015 Type 2 diabetes mellitus 08/27/2015 Encounters Date Type Department Care Team Description 02/10/2025 Travel 01/30/2025 Telephone [facility] [address] [place] [address] Eva Rosas DO DNKA/Late Cancel 01/23/2025 Patient Outreach [facility] [address] [place], [place] [phone] Eva Rosas DO Pre-visit Planning (SDOH will need to be completed in office.) 12/25/2024 Refill [facility] [address] [place] [address] Eva Rosas DO Vitamin D deficiency 12/13/2024 Telephone [facility] [address] [place] [address] Eva Rosas DO Recall Appt. 12/13/2024 Travel 11/28/2024 Refill [facility] [address] [place] [address] Eva Rosas DO Type 2 diabetes mellitus with diabetic nephropathy, unspecified whether intermediate insulin use ([facility]) 11/20/2024 Refill [facility] [address] [place] [address] Angela Maki, Toribio Type 2 diabetes mellitus with diabetic neuropathy, unspecified whether termite control technician insulin use ([facility]) from Last 3 Months Immunizations Name Administration Dates Next Due Hep B, adult 08/27/2015,04/04/2015,02/26/2015 Influenza High-dose Quadriva lent Preservative Free 07/15/2023,08/21/2022,07/18/2021,11/13 Influenza injectable quadriv alent IIV4 with preservative 10/02/2016,08/27/2015 Influenza injectable quadriv alent preservative free 08/28/2017 Influenza, High Dose Seasona l, Preservative Free 07/14/2019,09/07/2018 Influenza, IIV3, injectable 08/25/2014, 1 Influenza, Split (incl. jonah fied surface antigen) 07/14/2013,07/26/2012 Pfizer Covid-19 Vaccine 12+ 07/19/2024 Pfizer Covid-19 Vaccine 12+ Bivalent 03/10/2023 Pneumococcal Conjugate PCV 13 05/30/2015 Pneumococcal Conjugate PCV 20 10/27/2023 Pneumococcal Polysaccharide PPSV23 04/05/2009 RSV Bivalent 10/27/2023 TD (adult), 2 Lf tetanus tox oid, preservative free, adsorbed 10/31/2022,03/26/2007 Tdap 07/26/2012 Zoster, Recombinant 05/03/2021,02/26/2021 Zoster, live 05/30/2015 Family History Medical History Relation Name Comments Alcohol abuse Father Coronary artery disease Mother Relation Name Status Comments Father Mother Social History Tobacco Use Types Packs/Day Years Used Date Smoking Tobacco: Never Passive Smoke Exposure: Never Tobacco Cessation:Counseling Given: Not Answered Alcohol Use Standard Drinks/Week Comments Never 0 (1 standard drink = 0.6 oz pur e alcohol) Depression Answer Date Recorded Patient Health Questionnaire-9 Score 0 06/23/2024 Patient Health Questionnaire-9 Score 0 06/23/2024 Last PHQ-9: Questionnaire Data Not on file 0 06/23/2024 Housing Stability Answer Date Recorded What is your housing situation today? I have nohemy vania 06/23/[address] you li ve. Do you have problems with any of the following? None of the above 06/23/2024 Food Insecurity Answer Date Recorded Within the past 12 months, y ou worried that your food would run out before you got money to buy more: Never True 06/23/2024 Within the past 12 months,th e food you bought just didn't last and you didn't have enough money to get more: Never True Transportation Answer Date Recorded In the past 12 months, has l ack of transportation kept you from medical appts, meetings, work or from getting things needed for daily living? No 06/23/2024 Utilities Answer Date Recorded In the past 12 months, has t he electric, gas, oil or water company threatened to shut off services in your home? No 06/23/2024 Depression Answer Date Recorded Patient Health Questionnaire-2 Score 0 06/23/2024 Internet Access Answer Date Recorded Internet Access Q1 Yes 06/24/2024 Internet Access Q2 Not on file 06/24/2024 Sex and Gender Information Value Date Recorded Sex Assigned at Male 08/25/2022 10:19 AM EDT Legal Sex Male 10:19 AM EDT Gender Identity Male 08/25/2022 10:19 AM EDT Sexual Orientation Straight 08/25/2022 10 :19 AM EDT Last Filed Vital Signs Vital Sign Reading Time Taken Comments Blood Pressure 133/73 06/23/2024 11:53 AM EDT Pulse 67 06/23/2024 11:53 AM EDT Temperature 36.1 ??C (96.9 ??F) 06/23/2024 11:53 AM E DT Respiratory Rate 16 06/23/2024 11:53 AM EDT Oxygen Saturation 98% 06/23/2024 11:53 AM EDT Inhaled Oxygen Concentration - - Weight 82.6 kg (182 lb 3.2 oz) 06/23/2024 11:53 AM EDT Height 172.7 cm (5' 8 ) 06/23/2024 11:53 AM EDT Body Mass Index 27.7 06/23/2024 11:53 AM EDT Plan of Treatment Upcoming Encounters Date Type Department Care Team (Late st Contact Info) Description 02/21/2025 11:15 AM EDT Office Visit [facility] [address] [place], [place] [phone] Eva Rosas DO [address] [place] [address] Health Maintenance Due Date Last Done Comments Diabetes: Foot Exam 1950 Alcohol/Substance Use Screening 1952 Influenza Vaccine (#1) 2024 3, 08/21/2022, 07/18/2021, Additional history exists Diabetes: Hemoglobin A1C 09/23/2024 024, 01/26/2024, 10/29/2023, Additional history exists Lipid Panel 10/29/2024 10/29/2023, 06/2023, 07/22/2021, Additional history exists Depression Screening 06/23/2025 06/23/2024, 06/23/20 24 SDOH Screening 06/23/2025 06/23/2024 Tobacco Screening 08/22/2025 08/22/2024 Eye Exam 08/11/2026 08/11/2024, 07/26, 08/11/2024, Additional history exists DTaP/Tdap/Td Vaccines (3 - Td or Tdap) 10/31/2032 10/31/2022, 07/26/2012, 03/26/2007 Hepatitis B Vaccines Completed 08/27/2015, 04/04/2015, 02/26/2015 Zoster Vaccines Completed 05/03/2021, 01/2021, 05/30/2015 Pneumococcal Vaccine: 50+ Years Completed 10/27/2023, 05/30/2015, 04/05/2009 RSV Patients and Patients Aged 60 years or older Completed 10/27/2023 COVID-19 Vaccine Completed 07/19/2024, , 08/21/2022, Additional history exists HIB Vaccines Aged Out No longer eligi ble based on patient's age to complete this topic HPV Vaccines Aged Out No longer eligi ble based on patient's age to complete this topic Hepatitis A Vaccines Aged Out No long er eligible based on patient's age to complete this topic IPV Vaccines Aged Out No longer eligi ble based on patient's age to complete this topic Meningococcal Vaccine Aged Out No new elizabeth eligible based on patient's age to complete this topic RSV under 20 months Aged Out No longe r eligible based on patient's age to complete this topic Rotavirus Vaccines Aged Out No longer eligible based on patient's age to complete this topic Goals Goal Patient Goal Type Associated Problems Recent Progress Patient-Stated? Author Hemoglobin A1c < 8 Result Component 7.5( 4 11:57 AM EDT) No Angela Maki PharmD Record your blood sugar as directed Result Component No Angela Maki PharmD Procedures Procedure Name Priority Date/Time Associated Diagnosis Comments POCT GLYCATED HEMOGLOBIN, TOTAL Routine 06/23/2024 11:57 AM EDT Type 2 diabetes mellitus with diabetic neuropathy, unspecified whether termite control technician insulin use ([facility]) LIPID PANEL, STANDARD Routine 10/29/2023 8:46 AM EST Type 2 diabetes mellitus with diabetic neuropathy, unspecified whether intermediate insulin use ([facility]) from Last 3 Months or Most Recently Relevant to Health Maintenance Results * (ABNORMAL) POCT HGB A1C (06/23/2024 11:57 AM EDT) Hemoglobin A1C 7.5(A) 4.0 - 6.0 % QC Media Lot # [id number] Lot# Expiration Date [id number] Blood 06/23/2024 11:5 7 AM EDT Eva Rosas DO POINT OF CARE TEST ENTER/MUKUL T ORDERABLES Final Result * (ABNORMAL) Lipid Panel, Standard (10/29/2023 8:46 AM EST) Triglycerides 67 <150 mg/dL [facility] Comment:Desirable Triglyceri de: less than 150 mg/dLBorderline High Triglyceride 150-199 mg/dLHigh Triglyceride: 200-499 mg/dLVery High Triglyceride: greater than or equal to 5OO mg/dL Cholesterol 99 <200 mg/dL [facility] Comment:Desirable Cholestero l: less than 200 mg/dLBorderline High Cholesterol: 200-239 mg/dLHigh Cholesterol: greater than 239 mg/dL LDL Cholesterol Calculated 53 <100 mg/dL [facility] Comment:Desirable LDL: less than 100 mg/dLNear Optimal/Above Optimal LDL: 110- 129 mg/dLBorderline High LDL: 130-159 mg/dLHigh LDL: 160-189 mg/dLVery High LDL: greater than or equal to 190 mg/dL HDL Cholesterol 33(L) >40 mg/dL [facility] Comment:Desirable HDL: great er than 40 mg/dL Note: This HDL assay may give artificially low results in patients with liver disease. Blood Venous blood specimen / Unknown 10/29/2023 8:46 AM EST 10/29/2023 11:25 AM EST us Eva Rosas DO LAB BLOOD ORDERABLES Final R esult [facility] [address] [place] [address] [phone] from Last 3 Months or Most Recently Relevant to Health Maintenance Insurance [facility] [address] [place] [id number] Care Teams Tier Lift Truck Operator Relationship Specialty Start Date End Date Eva Rosas DO [address] [place] [id number] PCP - General Family Medicine 10/08/12
[2025-02-17 13:34] LABS: Hematocrit 43.1 % (42.0-52.0); Mean Corpuscular HGB Conc 32.5 g/dl (31.0-36.0); Mean Corpuscular Hemoglobin 33.3 pg (27.0-33.0); Mean Corpuscular Volume 102.4 fL (80.0-98.0); Mean Platelet Volume 11.5 fL (9.4-12.4); Platelet Count 186 X10*3/uL (160-400); Red Blood Count 4.21 X10*6/uL (4.60-5.80); Red Cell Distribution Width 13.5 % (11.0-16.0); White Blood Count 8.8 X10*3/uL (4.8-10.8)
[2025-02-17 13:58] LABS: Anion Gap 9 (12-20); Blood Urea Nitrogen 16 mg/dL (9-16); Calcium 10.1 mg/dL (8.4-10.2); Carbon Dioxide 29 mmol/L (22-29); Chloride 105 mmol/L (96-108); Estimated Glomerular Filt Rate 57; Potassium 4.4 mmol/L (3.3-5.1); Sodium 139 mmol/L (135-145)
== END 2025-02-17 11:12 | disposition home or self-care (01) ==
LOC: HO.HHCL 11:11
PROVIDERS: Visit Provider Internal Medicine Hypertension Specialist
DX: N18.30 Chronic kidney disease, stage 3 unspecified (principal)
CPT/HCPCS: 36415; 80051; 82310; 82565; 84520; 85027

== ENCOUNTER 2025-02-21 13:31 | Outpatient (AMB) | payer OTHER, SELFPAY ==
[2025-02-21 13:30] VITALS: BP 126/72; PULSE 66; O2SAT 96; BMI 26.9
--- NOTE | 2025-02-21 13:30 | HO.NEPHOV_ITS ---
Vital Signs 02/21/25 13:30 Height 5 ft 9 in Weight 182 lb BMI 26.9 BP 126/72 Blood Pressure Location Rt brachial Position Sitting Pulse 66 Pulse Source Pulse Oximeter Pulse Oximetry (%) 96 Oxygen Delivery Method Room Air Intake Visit Reasons: May follow up w/labs Client Service Manager Required: Yes Client Service Manager Language: Night Court Magistrate Name: Reinaldo([id number]) Allergies No Known Allergies Allergy (Mild, Verified 02/21/25 13:45) NONE Medication List - Last Reconciled 02/21/25 by Gee Bello MD aspirin 81 mg PO DAILY atorvastatin 40 mg PO DAILY cholecalciferol (vitamin D3) 50 mcg PO DAILY cyanocobalamin (vitamin B-12) 1,000 mcg PO DAILY empagliflozin (Jardiance) 25 mg PO DAILY metoprolol succinate ER (Toprol XL) 50 mg PO DAILY HPI Comments Details: 84 yr old man with HTN and DM with CKD Overall doing well BP was low Lisinopril was stopped ,No issues today PFSH Medical History Thoracic aortic aneurysm without rupture Diastolic dysfunction LVH (left ventricular hypertrophy) HTN (hypertension) Diabetes Surgical History H/O hernia repair Family History Mother CVD (cardiovascular disease) Sister Breast cancer Social History Alcohol intake: former Physical Exam Vital Signs: Last Vital Signs Pulse 66 02/21/25 13:30 BP 126/72 02/21/25 13:30 Pulse Ox 96 02/21/25 13:30 Oxygen Delivery Method Room Air 02/21/25 13:30 BMI result Body Mass Index 26.9 Const General: comfortable Nutritional Appearance: well nourished Orientation/consciousness: patient oriented x3 HEENT Head: No normal to inspection Mouth: moist mucous membranes Neck Neck: Yes supple and Yes no JVD Resp Auscultation: clear to auscultation bilaterally and no rales Cardio Jugular venous distension: no JVD Palpation: no palpable S3 and no palpable S4 Heart sounds: no rubs GI Palpation (GI): Soft to palpation and nontender Percussion: No Fluid wave present General: Yes no CVA tenderness Back/Spine/Pelvis Back: no CVA tenderness Skin General skin exam: no rashes or lesions noted Neuro General: patient oriented x3 Extrem General: Yes no pedal edema and No clubbing Results Reviewed Nephrology Results: Hgb 14.0 g/dl (14.0-18.0) 02/17/25 WBC 8.8 X10*3/uL (4.8-10.8) 02/17/25 Plt Count 186 X10*3/uL (160-400) 02/17/25 Sodium 139 mmol/L (135-145) 02/17/25 Potassium 4.4 mmol/L (3.3-5.1) 02/17/25 Chloride 105 mmol/L (96-108) 02/17/25 Carbon Dioxide 29 mmol/L (22-29) 02/17/25 BUN 16 mg/dL (9-16) 02/17/25 Creatinine 1.21 mg/dL (0.5-1.4) 02/17/25 Calcium 10.1 mg/dL (8.4-10.2) 02/17/25 Assessment & Plan Assessment & Plan (1) CKD (chronic kidney disease) stage 3, GFR 30-59 ml/min: Code(s): N18.30 - Chronic kidney disease, stage 3 unspecified Category: Medical Plan 84 yr old man with HTN and CKD Creatinine is back to baseline after stopping Lisinopril eGFR is about 57 ml/mt BP is better controlled No hypotension NO significant proteinuria Keep BP < 130/80 Avoid nephrotoxins Stay on low salt diet Encouraged to increase PO fluids Would benefit from SGLT-2 inhibitors Orders: Orders Comprehensive Met. Panel 6 Months N18.30 - Chronic kidney disease, stage 3 unspecified Coding Level of Care Code Est Pt Level 4 (14095) Diagnoses CKD (chronic kidney disease) stage 3, GFR 30-59 ml/min N18.30
--- OUTSIDE RECORDS SUMMARY | 2025-02-21 15:37 | XMS_ITS | Clinical Summary ---
Author Organization [employer] Address [address] [facility] [address] [place] [address] Care Team Providers Care Mortising Machine Operator Name Role Phone AlisonEva Primary Care Provider + [phone] Allergies No known active allergies Medications TRUEplus Lancets 33G miscIndications :Type 2 diabetes mellitus with diabetic neuropathy, unspecified whether termite control technician insulin use ([facility]) TEST BLOOD SUGAR 3 TIMES A DAY 100 each 11 07/12/20 24 Active atorvastatin (Lipitor) 40 MG tablet TAKE 1 TABLET BY MOUTH AT BEDTIME 30 tablet 5 08/30/20 24 Active metoprolol succinate XL (Toprol-XL) 100 MG 24 hr tabletIndicatio ns:Hypertension , unspecified type TAKE 1 TABLET BY MOUTH EVERY MORNING 90 tablet 3 10/04/20 24 Active Blood Glucose Monitoring Suppl (FreeStyle Hull Lite) w/Device kit TEST BLOOD SUGAR ONCE DAILY DIRECTED 1 kit 10/12/20 24 Active Jardiance 25 MG TAKE 1 TABLET BY MOUTH EVERY MORNING 30 tablet 5 10/31/19 25 Active Tradjenta 5 MG tabletIndicatio ns:Type 2 diabetes mellitus with diabetic neuropathy, unspecified whether mcfp insulin use ([facility]) TAKE 1 TABLET BY MOUTH EVERY MORNING 30 tablet 11 11/22/19 25 Active cyanocobalamin (Vitamin B-12) 1000 MCG tablet TAKE 1 TABLET BY MOUTH EVERY MORNING 30 tablet 11/30/19 25 Active FREESTYLE LITE test stripIndication s:Type 2 diabetes mellitus with diabetic nephropathy, unspecified whether mcfp insulin use ([facility]) USE DIRECTED TO TEST BLOOD SUGAR THREE TIMES DAILY 100 strip 11 11/30/19 25 Active cholecalciferol VITAMIN D (Vitamin D-3) 50 MCG (1999 UT) tabletIndicatio ns:Vitamin D deficiency TAKE 1 TABLET BY MOUTH EVERY MORNING 90 tablet 1 12/28/19 25 Active Alcohol Swabs (Alcohol Prep) 70 % pads USE DAILY DIRECTED 100 each 11 02/22/20 25 Active Alcohol Swabs (Alcohol Prep) 70 % pads USE DIRECTED DAILY DIRECTED 100 each 11 12/09/19 24 025 Discontinued Active Problems Problem Noted Date Diagnosed Date Anemia 06/23/2024 Vitamin B12 deficiency 06/09/2017 Diabetic neuropathy 08/27/2015 Diastolic dysfunction 08/27/2015 Essential hypertension 08/27/2015 Hyperlipidemia 08/27/2015 Hypertensive heart disease 08/27/2015 Left ventricular hypertrophy 08/27/2015 Stage 3 chronic kidney disease 08/27/2015 Tubular adenoma of colon 08/27/2015 Type 2 diabetes mellitus 08/27/2015 Encounters Date Type Department Care Team Description 02/21/2025 11:15 AM EDT Office Visit [facility] [address] [place] [address] Eva Rosas DO Type 2 diabetes mellitus with diabetic neuropathy, unspecified whether termite control technician insulin use ([facility]) (Primary Dx); Essential hypertension; Other hyperlipidemia; Stage 3 chronic kidney disease, unspecified whether stage 3a or 3b CKD (CMS/HCC); Anemia, unspecified type; Elevated ferritin level; Positive colorectal cancer screening using Cologuard test; Skin lesions; Healthcare maintenance 02/21/2025 Travel 02/19/2025 Refill [facility] [address] [place] [address] Eva Rosas DO 02/10/2025 Travel 01/30/2025 Telephone [facility] [address] [place] [address] Eva Rosas DO DNKA/Late Cancel 01/23/2025 Patient Outreach [facility] [address] [place], [place] [phone] Eva Rosas DO Pre-visit Planning (SDOH will need to be completed in office.) 12/25/2024 Refill [facility] [address] [place] [address] Eva Rosas DO Vitamin D deficiency 12/13/2024 Telephone [facility] [address] [place] [address] Eva Rosas DO Recall Appt. 12/13/2024 Travel 11/28/2024 Refill [facility] [address] [place] [address] Eva Rosas, Type 2 diabetes mellitus with diabetic nephropathy, unspecified whether termite control technician insulin use ([facility]) from Last 3 Months Immunizations Name Administration [...] Smoking Tobacco: Never Passive Smoke Exposure: Never Smokeless Tobacco: Never Tobacco Cessation:Counseling Given: Not Answered Alcohol Use Standard Drinks/Week Comments Never 0 (1 standard drink = 0.6 oz pur e alcohol) Depression Answer Date Recorded Patient Health Questionnaire-9 Score 0 06/23/2024 Patient Health Questionnaire-9 Score 0 06/23/2024 Last PHQ-9: Questionnaire Data Not on file 0 06/23/2024 Housing Stability Answer Date Recorded What is your housing situation today? I have nohemy caro 06/23/[address] you li [...] Sign Reading Time Taken Comments Blood Pressure 132/70 02/21/2025 10:59 AM EDT Pulse 70 02/21/2025 10:59 AM EDT Temperature 36.8 ??C (98.3 ??F) 02/21/2025 10:59 AM E DT Respiratory Rate 21 02/21/2025 10:59 AM EDT Oxygen Saturation 98% 02/21/2025 10:59 AM EDT Inhaled Oxygen Concentration - - Weight 82.8 kg (182 lb 8 oz) 02/21/2025 10:59 AM EDT Height 175.3 cm (5' 9 ) 02/21/2025 10:59 AM EDT Body Mass Index 26.95 02/21/2025 10:59 AM EDT Plan of Treatment Health Maintenance Due Date Last Done Comments Diabetes: Foot Exam 1950 Alcohol/Substance Use Screening 1952 Influenza Vaccine (#1) 2024 , 08/21/2022, 07/18/2021, Additional history exists Lipid Panel 10/29/2024 10/29/2023, 06/2023, 07/22/2021, Additional history exists Diabetes: Hemoglobin A1C 05/23/2025 025, 06/23/2024, 01/26/2024, Additional history exists Depression Screening 06/23/2025 06/23/2024, 06/23/20 SDOH Screening 06/23/2025 06/23/2024 Tobacco Screening 02/21/2026 02/21/2025 Eye Exam 08/11/2026 08/11/2024, 07/26, 08/11/2024, Additional [...] Author Hemoglobin A1c < 8 Result Component 7.2( 11:17 AM EDT) No Angela Maki PharmD Record your blood sugar as directed Result Component No Angela Maki PharmD Procedures Procedure Name Priority Date/Time Associated Diagnosis Comments POCT GLYCATED HEMOGLOBIN, TOTAL Routine 02/21/2025 11:17 AM EDT Type 2 diabetes mellitus with diabetic neuropathy, unspecified whether termite control technician insulin use ([facility]) POCT GLUCOSE Routine 02/21/2025 11:16 AM EDT Type 2 diabetes mellitus with diabetic neuropathy, unspecified whether termite control technician insulin use ([facility]) LIPID PANEL, STANDARD Routine 10/29/2023 8:46 AM EST Type 2 diabetes mellitus with diabetic neuropathy, unspecified whether mcfp insulin use ([facility]) from Last 3 Months or Most Recently Relevant to Health Maintenance Results * (ABNORMAL) POCT HGB A1C (02/21/2025 11:17 AM EDT) Hemoglobin A1C 7.2(A) 4.0 - 6.0 % QC Media Lot # [id number] Lot# Expiration Date Blood 02/21/2025 11:1 7 AM EDT Eva Rosas DO POINT OF CARE TEST ENTER/MUKUL T ORDERABLES Final Result * POCT Glucose (02/21/2025 11:16 AM EDT) Glucose Blood, POC 166 60 - 200 mg/dL QC Media Lot # [id number] Lot# Expiration Date 025 Blood Capillary blood specimen / Unknown 02/21/2025 11:16 AM EDT Eva Rosas DO POINT OF CARE TEST ENTER/MUKUL T ORDERABLES Final Result * (ABNORMAL) Lipid Panel, Standard (10/29/2023 8:46 AM EST) Triglycerides 67 <150 mg/dL [facility] Comment:Desirable Triglyceri de: less than 150 mg/dLBorderline High Triglyceride 150-199 mg/dLHigh Triglyceride: 200-499 mg/dLVery High Triglyceride: greater than or equal to 5OO mg/dL Cholesterol 99 <200 mg/dL [facility] Comment:Desirable Cholestero l: less than 200 mg/dLBorderline High Cholesterol: 200-239 mg/dLHigh Cholesterol: greater than 239 mg/dL LDL Cholesterol Calculated 53 <100 mg/dL [facility] Comment:Desirable LDL: less than 100 mg/dLNear Optimal/Above Optimal LDL: 110- 129 mg/dLBorderline High LDL: 130-159 mg/dLHigh LDL: 160-189 mg/dLVery High LDL: greater than or equal to 190 mg/dL HDL Cholesterol 33(L) >40 mg/dL [facility] Comment:Desirable HDL: great er than 40 mg/dL Note: This HDL assay may give artificially low results in patients with liver disease. Blood Venous blood specimen / Unknown 10/29/2023 8:46 AM EST 10/29/2023 11:25 AM EST us Eva Rosas DO LAB BLOOD ORDERABLES Final R esult [facility] [address] [place], [place] [phone] from Last 3 Months or Most Recently Relevant to Health Maintenance Insurance [address] [place] [id number] [employer] (HMO D-SNP) JESSICA LYONS [id number] Care Teams Mortising Machine Operator Relationship Specialty Start Date End Date Eva Rosas DO [address] [place] [id number] PCP - General Family Medicine 10/08/12
--- OUTSIDE RECORDS SUMMARY | 2025-02-21 15:37 | XMS_ITS | Encounter Summary ---
Author Organization [employer] Address [address] [facility] [address]t [place] [address] Care Team Providers Care B2B Sales Professional Name Role Phone JeffEva palomares Primary Care Provider [phone] Encounter Details Date Type Department Care Team (Latest Contact Info) Description 02/21/2025 Travel Social History Tobacco Use Types Packs/Day Years Used Date Smoking Tobacco: Never Passive Smoke Exposure: Never Smokeless Tobacco: Never Alcohol Use Standard Drinks/Week Comments Never [...] as of this encounter Plan of Treatment Not on file documented as of this encounter Goals Goal Patient Goal Type Associated Problems Recent Progress Patient-Stated? Author Hemoglobin A1c < 8 Result Component 7.2( 11:17 AM EDT) No Puia, Angela, PharmD Record your blood sugar as directed Result Component No Puia, Angela, PharmD documented as of this encounter Visit Diagnoses Not on filedocumented in this encounter Additional Health Concerns Assessment Noted Time PHQ-9 Depression Total Score: 0 06/23/20 24 11:55 AM EDT documented as of this encounter Care Teams B2B Sales Professional Relationship Specialty Start Date End Date Eva Rosas DO [address] [place] [address] PCP - General Family Medicine 10/08/12 documented as of this encounter
--- OUTSIDE RECORDS SUMMARY | 2025-02-21 15:37 | XMS_ITS | Encounter Summary ---
Author Organization [employer] Address [address] [facility] [address]t [place] [address] Care Team Providers Care National Van Owner Operator Name Role Phone Eva Rosas DO Primary Care Provider + [phone] Reason for Visit * Reason Comments Med Refill Encounter Details Date Type Department Care Team ([facility] st Contact Info) Description 02/19/2025 Refill [facility] [address] [place], [place] [phone] Eva Rosas DO [address] [place] [address] Social History Tobacco Use Types Packs/Day Years [...] Component 7.2( 11:17 AM EDT) No Angela Maki, PharmD Record your blood sugar as directed Result Component No Angela Maki, PharmD documented as of this encounter Visit Diagnoses Not on filedocumented in this encounter Additional Health Concerns Assessment Noted Time PHQ-9 Depression Total Score: 0 06/23/20 24 11:55 AM EDT documented as of this encounter Care Teams National Van Owner Operator Relationship Specialty Start Date End Date Eva Rosas DO [address] [place] [address] PCP - General Family Medicine 10/08/12 documented as of this encounter
--- OUTSIDE RECORDS SUMMARY | 2025-02-21 15:37 | XMS_ITS | Encounter Summary ---
Author Organization [employer] Address [address] [facility] 7t [place] [address] Care Team Providers Care Stringer Up Soldering Machine Name Role Phone Eva Rosas DO Primary Care Provider + [phone] Angela Maki PharmD Unavailable [phone] Reason for Visit * Reason Comments Med Refill Encounter Details Date Type Department Care Team (Late st Contact Info) Description 09/29/2023 Refill [facility] [address] [place] [address] Eva Rosas DO [address] [place], [place] [phone] Hypertension, unspecified type Social History Tobacco Use [...] on file documented as of this encounter Visit Diagnoses Diagnosis Hypertension, unspecified type documented in this encounter Additional Health Concerns Assessment Noted Time PHQ-9 Depression Total Score: 0 10/31/19 23 11:46 AM EST documented as of this encounter Care Teams Stringer Up Soldering Machine Relationship Specialty Start Date End Date Eva Rosas DO [address] [place] [address] PCP - General Family Medicine 10/08/12 Angela Maki PharmD [address] [place] [address] Pharmacist Internal Medicine 10/27/23 01/26/24 documented as of this encounter
--- OUTSIDE RECORDS SUMMARY | 2025-02-21 15:37 | XMS_ITS | Encounter Summary ---
Author Organization [employer] Address [address] [facility] [address] [place] [address] Care Team Providers Care Carbon Paste Mixer Operator Name Role Phone Eva Rosas DO Primary Care Provider [phone] Angela Maki PharmD Unavailable [phone] Encounter Details Date Type Department Care Team (Late st Contact Info) Description 10/28/2023 Abstract [facility] [address] [place] [address] Eva Rosas DO [address] [place] [address] Social History Tobacco Use Types Packs/Day Years [...] documented as of this encounter Care Teams Carbon Paste Mixer Operator Relationship Specialty Start Date End Date Eva Rosas DO [address] [place] [address] PCP - General Family Medicine 10/08/12 Angela Maki, PharmD [address] [place] [address] Pharmacist Internal Medicine 10/27/23 01/26/24 documented as of this encounter
--- OUTSIDE RECORDS SUMMARY | 2025-02-21 15:37 | XMS_ITS | Clinical Summary ---
Author Organization [facility] Address [address] [facility] [address] [place] [address] Phone Care Team Providers Care Mold Closer Name Role Phone Lakshmi Rosasfer Primary Care [...] patient's age to complete this topic Insurance [facility] ([id number]) JESSICA LYONS [id number] [place] [address] [id number] [facility] ([id number]) JESSICA LYONS [phone] Care Teams Mold Closer Relationship Specialty Start Date End Date Eva Rosas DO PCP - General 11/05/20
--- OUTSIDE RECORDS SUMMARY | 2025-02-21 15:37 | XMS_ITS | Encounter Summary ---
Author Organization [facility] [facility] Address [address] [facility] 7t [place] [address] Care Team Providers Care Strategic Marketing Associate Name Role Phone Eva Rosas DO Primary Care Provider [phone] Reason for Referral * Consultation (Urgent) - Authorized Specialty Diagnoses / Procedures Referred By Viktoria olson Referred To Contact Family Medicine Diagnoses Skin lesions Eva Rosas DO [address] [place] [address] Phone: tel: fax: Referral ID Status Reason Start Date Expiration Date Visits Requested Visits Authorized [id number] Authorized Specialty Services Required 02/21/2025 02/21/2026 1 1 Encounter Details Date Type Department Care Team (Late st Contact Info) Description 02/21/2025 11:15 AM EDT Office Visit [facility] [address] [place] [address] Eva Rosas DO [address] [place] [address] Type 2 diabetes mellitus with diabetic neuropathy, unspecified whether custodial insulin use (CMS/HCC) (Primary Dx); Essential hypertension; Other hyperlipidemia; Stage 3 chronic kidney disease, unspecified whether stage 3a or 3b CKD (CMS/HCC); Anemia, unspecified type; Elevated ferritin level; Positive colorectal cancer screening using Cologuard test; Skin lesions; Healthcare maintenance Social History Tobacco Use Types Packs/Day Years [...] AM EDT documented as of this encounter Last Filed Vital Signs Vital Sign Reading [...] Mass Index 26.95 02/21/2025 10:59 AM EDT documented in this encounter Plan of Treatment Scheduled Orders Name Type Priority Associated Diagnoses Orde r Schedule T4, Free Lab Routine Type 2 diabetes mellitus with diabetic neuropathy, unspecified whether custodial insulin use (CMS/HCC) Essential hypertension Other hyperlipidemia Stage 3 chronic kidney disease, unspecified whether stage 3a or 3b CKD (CMS/HCC) Anemia, unspecified type Elevated ferritin level Positive colorectal cancer screening using Cologuard test Skin lesions Healthcare maintenance Expected: 02/21/2025 (Approximate), Expires: 02/21/2026 Vitamin D, 25-Hydroxy, Total, Immunoassay Lab Routine Type 2 diabetes mellitus with diabetic neuropathy, unspecified whether custodial insulin use (CMS/HCC) Essential hypertension Other hyperlipidemia Stage 3 chronic kidney disease, unspecified whether stage 3a or 3b CKD (CMS/HCC) Anemia, unspecified type Elevated ferritin level Positive colorectal cancer screening using Cologuard test Skin lesions Healthcare maintenance Expected: 02/21/2025 (Approximate), Expires: 02/21/2026 Lipid Panel, Standard Lab Routine Type 2 diabetes mellitus with diabetic neuropathy, unspecified whether manager long term care insulin use (CMS/HCC) Essential hypertension Other hyperlipidemia Stage 3 chronic kidney disease, unspecified whether stage 3a or 3b CKD (CMS/HCC) Anemia, unspecified type Elevated ferritin level Positive colorectal cancer screening using Cologuard test Skin lesions Healthcare maintenance Expected: 02/21/2025 (Approximate), Expires: 02/21/2026 TSH Lab Routine Type 2 diabetes mellitus with diabetic neuropathy, unspecified whether manager long term care insulin use (CMS/HCC) Essential hypertension Other hyperlipidemia Stage 3 chronic kidney disease, unspecified whether stage 3a or 3b CKD (CMS/HCC) Anemia, unspecified type Elevated ferritin level Positive colorectal cancer screening using Cologuard test Skin lesions Healthcare maintenance Expected: 02/21/2025 (Approximate), Expires: 02/21/2026 Hepatic Function Panel Lab Routine Type 2 diabetes mellitus with diabetic neuropathy, unspecified whether manager long term care insulin use ([facility]/HCC) Essential hypertension Other hyperlipidemia Stage 3 chronic kidney disease, unspecified whether stage 3a or 3b CKD (CMS/HCC) Anemia, unspecified type Elevated ferritin level Positive colorectal cancer screening using Cologuard test Skin lesions Healthcare maintenance Expected: 02/21/2025 (Approximate), Expires: 02/21/2026 Hemoglobin A1c Lab Routine Type 2 diabetes mellitus with diabetic neuropathy, unspecified whether custodial insulin use (CMS/HCC) Essential hypertension Other hyperlipidemia Stage 3 chronic kidney disease, unspecified whether stage 3a or 3b CKD (CMS/HCC) Anemia, unspecified type Elevated ferritin level Positive colorectal cancer screening using Cologuard test Skin lesions Healthcare maintenance Expected: 02/21/2025 (Approximate), Expires: 02/21/2026 Basic Metabolic Panel Lab Routine Type 2 diabetes mellitus with diabetic neuropathy, unspecified whether manager long term care insulin use (CMS/HCC) Essential hypertension Other hyperlipidemia Stage 3 chronic kidney disease, unspecified whether stage 3a or 3b CKD (CMS/HCC) Anemia, unspecified type Elevated ferritin level Positive colorectal cancer screening using Cologuard test Skin lesions Healthcare maintenance Expected: 02/21/2025 (Approximate), Expires: 02/21/2026 CBC Lab Routine Type 2 diabetes mellitus with diabetic neuropathy, unspecified whether manager long term care insulin use (CMS/HCC) Essential hypertension Other hyperlipidemia Stage 3 chronic kidney disease, unspecified whether stage 3a or 3b CKD (CMS/HCC) Anemia, unspecified type Elevated ferritin level Positive colorectal cancer screening using Cologuard test Skin lesions Healthcare maintenance Expected: 02/21/2025, Expires: 02/21/2026 Albumin, Random Urine W/Creatinine Lab Routine Type 2 diabetes mellitus with diabetic neuropathy, unspecified whether manager long term care insulin use ([facility]/HCC) Essential hypertension Other hyperlipidemia Stage 3 chronic kidney disease, unspecified whether stage 3a or 3b CKD (CMS/HCC) Anemia, unspecified type Elevated ferritin level Positive colorectal cancer screening using Cologuard test Skin lesions Healthcare maintenance Expected: 02/21/2025 (Approximate), Expires: 02/21/2026 Scheduled Referrals Name Type Priority Associated Diagnoses Orde r Schedule Referral to [facility] Derm Skin Adult Outpatient Referral Urgent Skin lesions Expected: 02/21/2025 (Approximate), Expires: 02/21/2026 documented as of this encounter Goals Goal Patient Goal Type Associated Problems Recent Progress Patient-Stated? Author Hemoglobin A1c < 8 Result Component 7.2( 11:17 AM EDT) No Angela Maki PharmD Record your blood sugar as directed Result Component No Angela Maki PharmD documented as of this encounter Procedures Procedure Name Priority Date/Time Associated Diagnosis Comments POCT GLYCATED HEMOGLOBIN, TOTAL Routine 02/21/2025 11:17 AM EDT Type 2 diabetes mellitus with diabetic neuropathy, unspecified whether custodial insulin use ([facility]) POCT GLUCOSE Routine 02/21/2025 11:16 AM EDT Type 2 diabetes mellitus with diabetic neuropathy, unspecified whether custodial insulin use ([facility]) documented in this encounter Results * (ABNORMAL) POCT HGB A1C (02/21/2025 11:17 AM EDT) Hemoglobin A1C 7.2(A) 4.0 - 6.0 % QC Media Lot # [id number] Lot# Expiration Date Blood 02/21/2025 11:1 7 AM EDT Eva Rosas DO POINT OF CARE TEST ENTER/MUKUL T ORDERABLES Final Result * POCT Glucose (02/21/2025 11:16 AM EDT) Pathologist [facility] Glucose Blood, POC 166 60 - 200 mg/dL QC [employer] Lot # [id number] Lot# Expiration Date 025 Blood Capillary blood specimen / Unknown 02/21/2025 11:16 AM EDT Eva Rosas DO POINT OF CARE TEST ENTER/MUKUL T ORDERABLES Final Result documented in this encounter Visit Diagnoses Diagnosis Type 2 diabetes mellitus with diabetic neuropathy, unspecified whether custodial insulin use ([facility])- Primary Essential hypertension Unspecified essential hypertension Other hyperlipidemia Stage 3 chronic kidney disease, unspecified whether stage 3a or 3b CKD ([facility]) Anemia, unspecified type Elevated ferritin level Other abnormal blood chemistry Positive colorectal cancer screening using Cologuard test Skin lesions Healthcare maintenance documented in this encounter Additional Health Concerns Assessment Noted Time PHQ-9 Depression Total Score: 0 06/23/20 24 11:55 AM EDT documented as of this encounter Care Teams Strategic Marketing Associate Relationship Specialty Start Date End Date Eva Rosas DO [address] [place] [address] PCP - General Family Medicine 10/08/12 documented as of this encounter
== END 2025-02-21 13:57 | disposition home or self-care (01) ==
LOC: HO.HKA 13:32
PROVIDERS: PCP Family Medicine; Visit Provider Internal Medicine Hypertension Specialist
DX: N18.30 Chronic kidney disease, stage 3 unspecified (principal)
CPT/HCPCS: 99214

== ENCOUNTER → 2025-02-21 13:31 | Outpatient (BNVA) | payer OTHER, SELFPAY | PROVIDERS: PCP Family Medicine; Visit Provider Internal Medicine Hypertension Specialist | DX: E11.22 Type 2 diabetes mellitus with diabetic chronic kidney disease (principal); I12.9 Hypertensive chronic kidney disease with stage 1 through stage 4 chronic kidney disease, or unspecified chronic kidney disease; N18.30 Chronic kidney disease, stage 3 unspecified | CPT/HCPCS: 99212 ==

== ENCOUNTER 2025-02-27 08:14 | Outpatient (REF) | payer OTHER, SELFPAY ==
--- OUTSIDE RECORDS SUMMARY | 2025-02-27 08:30 | XMS_ITS | Clinical Summary ---
Author Organization [facility] Address [address] [place] [address] Phone Care Team Providers Care Chief Cardiopulmonary Technologist Name Role Phone Lakshmi Rosasfer Primary Care [...] patient's age to complete this topic Insurance [facility] ([id number]) JESSICA LYONS [id number] [place] [id number] [facility] ([id number]) JESSICA LYONS [phone] Care Teams Chief Cardiopulmonary Technologist Relationship Specialty Start Date End Date Eva Rosas DO PCP - General 11/05/20
--- OUTSIDE RECORDS SUMMARY | 2025-02-27 08:30 | XMS_ITS | Encounter Summary ---
Author Organization [employer] Address [address] [facility] 7t [place] [address] Care Team Providers Care Probate Paralegal Name Role Phone Eva Rosas DO Primary Care Provider + [phone] Reason for Visit * Reason Comments Med Refill Encounter Details Date Type Department Care Team ([facility] st Contact Info) Description 02/23/2025 Refill [facility] MEDICINE [address] [place], [place] [phone] Eva Rosas DO [address] [place] [address] Social History Tobacco Use Types Packs/Day Years [...] documented as of this encounter Care Teams Probate Paralegal Relationship Specialty Start Date End Date Eva Rosas DO [address] [place] [phone] PCP - General Family Medicine 10/08/12 documented as of this encounter
--- OUTSIDE RECORDS SUMMARY | 2025-02-27 08:30 | XMS_ITS | Clinical Summary ---
Author Organization [employer] Address [address] [facility] 7t [place] [address] Care Team Providers Care Manager Salt Name Role Phone AlisonEva Primary Care Provider + [phone] Allergies No known active allergies Medications TRUEplus Lancets 33G miscIndications :Type 2 diabetes mellitus with diabetic neuropathy, unspecified whether shelter insulin use ([facility]) TEST BLOOD SUGAR 3 TIMES A DAY 100 each 11 07/12/20 24 Active metoprolol succinate XL (Toprol-XL) 100 MG 24 hr tabletIndicatio ns:Hypertension , unspecified type TAKE 1 TABLET BY MOUTH EVERY MORNING 90 tablet 3 10/04/20 24 Active Blood Glucose Monitoring Suppl (FreeStyle Drumright Lite) w/Device kit TEST BLOOD SUGAR ONCE DAILY DIRECTED 1 kit 10/12/20 24 Active Jardiance 25 MG TAKE 1 TABLET BY MOUTH EVERY MORNING 30 tablet 5 10/31/19 25 Active Tradjenta 5 MG tabletIndicatio ns:Type 2 diabetes mellitus with diabetic neuropathy, unspecified whether salvage determiner insulin use ([facility]) TAKE 1 TABLET BY MOUTH EVERY MORNING 30 tablet 11 11/22/19 25 Active cyanocobalamin (Vitamin B-12) 1000 MCG tablet TAKE 1 TABLET BY MOUTH EVERY MORNING 30 tablet 11 11/30/19 25 Active FREESTYLE LITE test stripIndication s:Type 2 diabetes mellitus with diabetic nephropathy, unspecified whether shelter insulin use ([facility]) USE DIRECTED TO TEST BLOOD SUGAR THREE TIMES DAILY 100 strip 11 11/30/19 25 Active cholecalciferol VITAMIN D (Vitamin D-3) 50 MCG (1999) tabletIndicatio ns:Vitamin D deficiency TAKE 1 TABLET BY MOUTH EVERY MORNING 90 tablet 1 12/28/19 25 Active Alcohol Swabs (Alcohol Prep) 70 % pads USE DAILY DIRECTED 100 each 11 02/22/20 25 Active atorvastatin (Lipitor) 40 MG tablet TAKE 1 TABLET BY MOUTH AT BEDTIME 30 tablet 5 02/24/20 25 Active Alcohol Swabs (Alcohol Prep) 70 % pads USE DIRECTED DAILY DIRECTED 100 each 11 12/09/19 24 025 Discontinued atorvastatin (Lipitor) 40 MG tablet TAKE 1 TABLET BY MOUTH AT BEDTIME 30 tablet 5 08/30/20 24 025 Discontinued Active Problems Problem Noted Date Diagnosed Date Anemia 06/23/2024 Vitamin B12 deficiency 06/09/2017 Diabetic neuropathy 08/27/2015 Diastolic dysfunction 08/27/2015 Essential hypertension 08/27/2015 Hyperlipidemia 08/27/2015 Hypertensive heart disease 08/27/2015 Left ventricular hypertrophy 08/27/2015 Stage 3 chronic kidney disease 08/27/2015 Tubular adenoma of colon 08/27/2015 Type 2 diabetes mellitus 08/27/2015 Encounters Date Type Department Care Team Description 02/23/2025 Refill [facility] MEDICINE [address] [place] [address] Eva Rosas DO 02/21/2025 11:15 AM EDT Office Visit [facility] MEDICINE [address] [place] [address] Eva Rosas DO Type 2 diabetes mellitus with diabetic neuropathy, unspecified whether salvage determiner insulin use ([facility]) (Primary Dx); Essential hypertension; Other hyperlipidemia; Stage 3 chronic kidney disease, unspecified whether stage 3a or 3b CKD (CMS/HCC); Anemia, unspecified type; Elevated ferritin level; Positive colorectal cancer screening using Cologuard test; Skin lesions; Healthcare maintenance 02/21/2025 Travel 02/19/2025 Refill [facility] MEDICINE [address] [place] [address] Eva Rosas DO 02/10/2025 Travel 01/30/2025 Telephone [facility] MEDICINE [address] [place] [address] Eva Rosas DO DNKA/Late Cancel 01/23/2025 Patient Outreach [facility] CHC MED & PEDS [address] [place] [address] Eva Rosas, Pre-visit Planning (SDOH will need to be completed in office.) 12/25/2024 Refill [facility] MEDICINE [address] [place] [address] Eva Rosas, Vitamin D deficiency 12/13/2024 Telephone [facility] MEDICINE [address] [place], [place] [phone] Eva Rosas, Recall Appt. 12/13/2024 Travel from Last 3 Months Immunizations Name Administration [...] 7.2( 11:17 AM EDT) No Angela Maki, Toribio Record your blood sugar as directed Result Component No Angela Maki PharmD Procedures Procedure Name Priority Date/Time Associated Diagnosis Comments POCT GLYCATED HEMOGLOBIN, TOTAL Routine 02/21/2025 11:17 AM EDT Type 2 diabetes mellitus with diabetic neuropathy, unspecified whether shelter insulin use ([facility]) POCT GLUCOSE Routine 02/21/2025 11:16 AM EDT Type 2 diabetes mellitus with diabetic neuropathy, unspecified whether shelter insulin use ([facility]) LIPID PANEL, STANDARD Routine 10/29/2023 8:46 AM EST Type 2 diabetes mellitus with diabetic neuropathy, unspecified whether shelter insulin use ([facility]) from Last 3 Months or Most Recently Relevant to Health Maintenance Results * (ABNORMAL) POCT HGB A1C (02/21/2025 11:17 AM EDT) Pathologist [facility] Hemoglobin A1C 7.2(A) 4.0 - 6.0 % QC Media Lot # [id number] Lot# Expiration Date , Blood 02/21/2025 11:1 7 AM EDT Eva Rosas DO POINT OF CARE TEST ENTER/MUKUL T ORDERABLES Final Result * POCT Glucose (02/21/2025 11:16 AM EDT) Glucose Blood, POC 166 60 - 200 mg/dL QC Media Lot # [id number] Lot# Expiration Date ,025 Blood Capillary blood specimen / Unknown 02/21/2025 11:16 AM EDT us Eva Rosas DO POINT OF CARE TEST ENTER/MUKUL T ORDERABLES Final Result * (ABNORMAL) Lipid Panel, Standard (10/29/2023 8:46 AM EST) Triglycerides 67 <150 mg/dL [facility] Comment:Desirable Triglyceri de: less than 150 mg/dLBorderline High Triglyceride 150-199 mg/dLHigh Triglyceride: 200-499 mg/dLVery High Triglyceride: greater than or equal to 5OO mg/dL Cholesterol 99 <200 mg/dL [facility] Comment:Desirable Cholestero l: less than 200 mg/dLBorderline High Cholesterol: 200-239 mg/dLHigh Cholesterol: greater than 239 mg/dL LDL Cholesterol Calculated 53 <100 mg/dL [facility] Comment:Desirable LDL: less than 100 mg/dLNear Optimal/Above Optimal LDL: 110- 129 mg/dLBorderline High LDL: 130-159 mg/dLHigh LDL: 160-189 mg/dLVery High LDL: greater than or equal to 190 mg/dL HDL Cholesterol 33(L) >40 mg/dL [facility] Comment:Desirable HDL: great er than 40 mg/dL Note: This HDL assay may give artificially low results in patients with liver disease. Blood Venous blood specimen / Unknown 10/29/2023 8:46 AM EST 10/29/2023 11:25 AM EST Eva Rosas DO LAB BLOOD ORDERABLES Final R esult [facility] [address] [place] [address] [phone] from Last 3 Months or Most Recently Relevant to Health Maintenance Insurance [employer] (HMO D-SNP) JESSICA LYONS [id number] Care Teams Manager Salt Relationship Specialty Start Date End Date Eva Rosas DO [address] [place] [address] PCP - General Family Medicine 10/08/12
--- OUTSIDE RECORDS SUMMARY | 2025-02-27 08:30 | XMS_ITS | Encounter Summary ---
Author Organization [employer] Address 75 [facility] 7t [place] [address] Care Team Providers Care Slip Injector And Applicator Name Role Phone Eva Rosas DO Primary Care Provider [phone] Angela Maki PharmD Unavailable [phone] Encounter Details Date Type Department Care Team (Late st Contact Info) Description 10/28/2023 Abstract [facility] MEDICINE [address] [place] [address] Eva Rosas DO [address] [place] [address] Social History Tobacco Use Types Packs/Day Years [...] documented as of this encounter Care Teams Slip Injector And Applicator Relationship Specialty Start Date End Date Eva Rosas DO [address] [place] [address] PCP - General Family Medicine 10/08/12 Angela Maki, PharmD [address] [place] [address] Pharmacist Internal Medicine 10/27/23 01/26/24 documented as of this encounter
--- OUTSIDE RECORDS SUMMARY | 2025-02-27 08:30 | XMS_ITS | Encounter Summary ---
Author Organization [employer] Address [address] [facility] 7t [place] [address] Care Team Providers Care Supervisor Microbiology Technologists Name Role Phone Eva Rosas DO Primary Care Provider + [phone] Angela Maki PharmD Unavailable [phone] Reason for Visit * Reason Comments Med Refill Encounter Details Date Type Department Care Team (Late st Contact Info) Description 09/29/2023 Refill [facility] CHC MED & PEDS [address] [place] [address] Eva Rosas DO [address] [place], [place] [phone] Hypertension, unspecified type Social History Tobacco Use [...] documented as of this encounter Care Teams Supervisor Microbiology Technologists Relationship Specialty Start Date End Date Eva Rosas DO 230 [place] [address] PCP - General Family Medicine 10/08/12 Angela Maki PharmD 230 [place] [address] Pharmacist Internal Medicine 10/27/23 01/26/24 documented as of this encounter
[2025-02-27 11:23] LABS: Hematocrit 40.9 % (42.0-52.0); Hemoglobin 13.6 g/dl (14.0-18.0); Mean Corpuscular HGB Conc 33.3 g/dl (31.0-36.0); Mean Corpuscular Hemoglobin 33.3 pg (27.0-33.0); Mean Corpuscular Volume 100.2 fL (80.0-98.0); Mean Platelet Volume 11.6 fL (9.4-12.4); Platelet Count 178 X10*3/uL (160-400); Red Blood Count 4.08 X10*6/uL (4.60-5.80); Red Cell Distribution Width 13.5 % (11.0-16.0); White Blood Count 8.6 X10*3/uL (4.8-10.8)
[2025-02-27 11:36] LABS: Estimated Average Glucose 160 mg/dL; Hemoglobin A1C 197.7724 umol/L; Hemoglobin A1c % 7.2 % (<6.0); Total Hemoglobin (HGBA1C) 3592.3758 umol/L
[2025-02-27 11:59] LABS: Alanine Aminotransferase 23 U/L (0-40); Albumin Level 4.5 g/dL (3.5-5.0); Alkaline Phosphatase 84 U/L (39-117); Anion Gap 12 (12-20); Aspartate Amino Transferase 24 U/L (5-37); Bilirubin Direct 0.3 mg/dL (0.0-0.5); Bilirubin Total 0.9 mg/dL (0.0-1.0); Blood Urea Nitrogen 20 mg/dL (9-16); Calcium 9.7 mg/dL (8.4-10.2); Carbon Dioxide 27 mmol/L (22-29); Chloride 104 mmol/L (96-108); Cholesterol 115 mg/dL (<200); Estimated Glomerular Filt Rate 47; Glucose Random 138 mg/dL (60-115); Potassium 4.3 mmol/L (3.3-5.1); Sodium 139 mmol/L (135-145); Total Protein 7.9 g/dL (6.5-8.0); Triglycerides 76 mg/dL (<150)
[2025-02-27 12:49] LABS: HDL Cholesterol 41 mg/dL (>40); LDL Cholesterol Calculated 59 mg/dL (<100)
[2025-02-27 13:02] LABS: Creatinine Urine 90.03 mg/dL; Microalbum/Creatinine Ratio Ur 18.8 ug/mg cr (<30)
[2025-02-27 13:03] LABS: Free T4 (Free Thyroxine) 0.93 ng/dL (0.71-1.85); Thyroid Stimulating Hormone 1.43 uIU/mL (0.32-4.0); Vitamin D 25-OH Total 35.4 ng/mL (>30)
== END 2025-02-27 08:15 | disposition home or self-care (01) ==
LOC: HO.HHCL 08:14
PROVIDERS: Visit Provider Family Medicine
DX: E11.40 Type 2 diabetes mellitus with diabetic neuropathy, unspecified (principal); I12.9 Hypertensive chronic kidney disease with stage 1 through stage 4 chronic kidney disease, or unspecified chronic kidney disease; E11.22 Type 2 diabetes mellitus with diabetic chronic kidney disease; N18.30 Chronic kidney disease, stage 3 unspecified; E78.49 Other hyperlipidemia; D64.9 Anemia, unspecified; R79.89 Other specified abnormal findings of blood chemistry; R19.5 Other fecal abnormalities; L98.9 Disorder of the skin and subcutaneous tissue, unspecified; Z00.00 Encounter for general adult medical examination without abnormal findings
CPT/HCPCS: 36415; 80048; 80061; 80076; 82043; 82306; 82570; 83036; 84439; 84443; 85027

== ENCOUNTER 2025-08-11 08:14 | Outpatient (REF) | payer OTHER, SELFPAY ==
--- OUTSIDE RECORDS SUMMARY | 2025-08-11 08:27 | XMS_ITS | Encounter Summary ---
Author Organization [employer] Address 75 [facility] 7t [place] [address] Care Team Providers Care Manager Assurance Name Role Phone Eva Rosas DO Primary Care Provider + [phone] Angela Maik PharmD Unavailable [phone] Encounter Details Date Type Department Care Team ([facility] st Contact Info) Description 10/28/2023 Abstract [facility] MEDICINE [address] [place] [address] Eva Rosas DO [address] [place] [address] Social History Tobacco Use Types Packs/Day Years [...] Care Team (Late st Contact Info) Description 09/19/2025 1:30 PM EST Office Visit [facility] OPTOMETRY [address] [place] [address] Hola, Acacia, OD [address] [place] [address] 09/29/2025 1:15 PM EST Office Visit [facility] MEDICINE [address] [place] [address] Sarah Whitehead MD [address] [place] [address] documented as of this encounter Goals Goal Patient Goal Type Associated Problems Recent Progress Patient-Stated? Author Hemoglobin A1c < 8 Result Component 7.2( 8:16 AM EDT) No Puia, Angela, PharmD Record your blood sugar as directed Result Component No Puia, Angela, PharmD documented as of this encounter Visit Diagnoses Not on filedocumented in this encounter Additional Health Concerns Assessment Noted Time PHQ-9 Depression Total Score: 0 10/31/19 23 11:46 AM EST documented as of this encounter Care Teams Manager Assurance Relationship Specialty Start Date End Date Eva Rosas DO [address] [place] [address] PCP - General Family Medicine 10/08/12 Puia, Angela, PharmD [address] [place] [address] Pharmacist Internal Medicine 10/27/23 01/26/24 documented as of this encounter
--- OUTSIDE RECORDS SUMMARY | 2025-08-11 08:27 | XMS_ITS | Clinical Summary ---
Author Organization [employer] Address 75 [facility] 7t [place] [address] Care Team Providers Care Configuration Specialist Name Role Phone JeffEva palomares Primary Care Provider + [phone] Allergies No known active allergies Medications metoprolol succinate XL (Toprol-XL) 100 MG 24 hr tabletIndicatio ns:Hypertension , unspecified type TAKE 1 TABLET BY MOUTH EVERY MORNING 90 tablet 3 10/04/20 24 Active Blood Glucose Monitoring Suppl (FreeStyle Angier Lite) w/Device kit TEST BLOOD SUGAR ONCE DAILY DIRECTED 1 kit 10/12/20 24 Active Tradjenta 5 MG tabletIndicatio ns:Type 2 diabetes mellitus with diabetic neuropathy, unspecified whether commercial roofer insulin use (HCC) TAKE 1 TABLET BY MOUTH EVERY MORNING 30 tablet 11/22/19 25 Active cyanocobalamin (Vitamin B-12) 1000 MCG tablet TAKE 1 TABLET BY MOUTH EVERY MORNING 30 tablet 11/30/19 25 Active FREESTYLE LITE test stripIndication s:Type 2 diabetes mellitus with diabetic nephropathy, unspecified whether commercial roofer insulin use (HCC) USE DIRECTED TO TEST BLOOD SUGAR THREE TIMES DAILY 100 strip 11 11/30/19 25 Active Alcohol Swabs (Alcohol Prep) 70 % pads USE DAILY DIRECTED 100 each 11 02/22/20 25 Active atorvastatin (Lipitor) 40 MG tablet TAKE 1 TABLET BY MOUTH AT BEDTIME 30 tablet 5 02/24/20 25 Active Jardiance 25 MG TAKE 1 TABLET BY MOUTH EVERY MORNING 30 tablet 6 05/30/20 25 Active cholecalciferol VITAMIN D (Vitamin D-3) 50 MCG (1999) tabletIndicatio ns:Vitamin D deficiency TAKE 1 TABLET BY MOUTH EVERY MORNING 90 tablet 1 06/22/20 25 Active TRUEplus Lancets 33G miscIndications :Type 2 diabetes mellitus with diabetic neuropathy, unspecified whether commercial roofer insulin use (HCC) USE DIRECTED TO TEST BLOOD SUGAR THREE TIMES DAILY 100 each 11 07/28/20 25 Active TRUEplus Lancets 33G miscIndications :Type 2 diabetes mellitus with diabetic neuropathy, unspecified whether penitentiary insulin use (HCC) TEST BLOOD SUGAR 3 TIMES A DAY 100 each 11 07/12/20 24 025 Discontinued Active Problems Problem Noted Date Diagnosed Date Anemia 06/23/2024 Vitamin B12 deficiency 06/09/2017 Diabetic neuropathy 08/27/2015 Diastolic dysfunction 08/27/2015 Essential hypertension 08/27/2015 Hyperlipidemia 08/27/2015 Hypertensive heart disease 08/27/2015 Left ventricular hypertrophy 08/27/2015 Stage 3 chronic kidney disease (CMS/HCC) 015 Tubular adenoma of colon 08/27/2015 Type 2 diabetes mellitus 08/27/2015 Encounters Date Type Department Care Team Description 07/27/2025 Refill [facility] MEDICINE [address] [place] [address] Eva Rosas DO Type 2 diabetes mellitus with diabetic neuropathy, unspecified whether commercial roofer insulin use (HCC) 06/22/2025 Refill [facility] MEDICINE [address] [place] [address] Eva Rosas DO Vitamin D deficiency 05/29/2025 Refill [facility] MEDICINE [address] [place] [address] Eva Rosas DO from Last 3 Months Immunizations Immunization Administration Dates Next Due Hep B, adult [...] 70 02/21/2025 10:59 AM EDT Temperature 36.8 C (98.3 F) 02/21/2025 10:59 AM EDT Respiratory Rate 21 02/21/2025 10:59 AM EDT Oxygen Saturation 98% 02/21/2025 10:59 AM EDT Inhaled Oxygen Concentration - - Weight 82.8 kg (182 lb 8 oz) 02/21/2025 10:59 AM EDT Height 175.3 cm (5' 9 ) 02/21/2025 10:59 AM EDT Body Mass Index 26.95 02/21/2025 10:59 AM EDT Plan of Treatment Upcoming Encounters Date Type Department Care Team (Late st Contact Info) Description 09/19/2025 1:30 PM EST Office Visit [facility] OPTOMETRY [address] [place] [address] Hola, Acacia, OD [address] [place] [address] 09/29/2025 1:15 PM EST Office Visit [facility] MEDICINE [address] [place] [address] Sarah Whitehead MD [address] [place] [address] Health Maintenance Due Date Last Done Comments Diabetes: Foot Exam 1950 Alcohol/Substance Use Screening 1952 Diabetes: Hemoglobin A1C 05/30/2025 025, 02/21/2025, 06/23/2024, Additional history exists Depression Screening 06/23/2025 06/23/2024, 06/23/20 SDOH Screening 06/23/2025 06/23/2024 COVID-19 Vaccine ( season) 2025 07/19/2024, 03/10/2023, 08/21/2022, Additional history exists Influenza Vaccine (#1) 2025 3, 08/21/2022, 07/18/2021, Additional history exists Tobacco Screening 02/21/2026 02/21/2025 Lipid Panel 02/27/2026 02/27/2025, 01/2024, 11/03/2022, Additional history exists Eye Exam 08/11/2026 08/11/2024, 07/26, 08/11/2024, Additional history exists DTaP/Tdap/Td Vaccines (3 - Td or Tdap) 10/31/2032 10/31/2022, 07/26/2012, 03/26/2007 Hepatitis B Vaccines Completed 08/27/2015, 04/04/2015, 02/26/2015 Zoster Vaccines Completed 05/03/2021, 01/2021, 05/30/2015 Pneumococcal Vaccine: 50+ Years Completed 10/27/2023, 05/30/2015, 04/05/2009 RSV Patients and Patients Aged 60 years or older Completed 10/27/2023 HIB Vaccines Aged Out No longer eligi [...] patient's age to complete this topic Meningococcal B Vaccine Aged Out No l onger eligible based on patient's age to complete [...] Hemoglobin A1c < 8 Result Component 7.2( 5 8:16 AM EDT) No Angela Maki PharmD Record your blood sugar as directed Result Component No Angela Maki PharmD Procedures Procedure Name Priority Date/Time Associated Diagnosis Comments HEMOGLOBIN A1C Routine 02/27/2025 8:16 AM EDT Type 2 diabetes mellitus with diabetic neuropathy, unspecified whether penitentiary insulin use ([facility]) Essential hypertension Other hyperlipidemia Stage 3 chronic kidney disease, unspecified whether stage 3a or 3b CKD ([facility]) Anemia, unspecified type Elevated ferritin level Positive colorectal cancer screening using Cologuard test Skin lesions Healthcare maintenance LIPID PANEL, STANDARD Routine 02/27/2025 8:16 AM EDT Type 2 diabetes mellitus with diabetic neuropathy, unspecified whether commercial roofer insulin use ([facility]) Essential hypertension Other hyperlipidemia Stage 3 chronic kidney disease, unspecified whether stage 3a or 3b CKD ([facility]/HCC) Anemia, unspecified type Elevated ferritin level Positive colorectal cancer screening using Cologuard test Skin lesions Healthcare maintenance from Last 3 Months or Most Recently Relevant to Health Maintenance Results * (ABNORMAL) Hemoglobin A1c (02/27/2025 8:16 AM EDT) Hemoglobin A1c 7.2(H) <6.0 % [facility] Comment:Hemoglobin A1C Refer ence Range Adults: 4.8 - 6.0 % Non diabetic: < 6.0 % Goal: < 7.0 %Additional Action Suggested: > 8.0 %Note: Hemoglobin A1c results are invalid for patients with abnormal amounts of HbF. Blood transfusions may impact the HbA1c concentration in the patient sample. Estimated Average Glucose 160 mg/dL [facility] Comment:eAG = Estimated ave rage glucose which is %A1C expressed asaverage glucose, using the formula of the [id number] Glucose study (ADAG), Diabetes Care, Vol.31,#8,May. 2007 Blood Venous blood specimen / Unknown 02/27/2025 8:16 AM EDT 02/27/2025 11:08 AM EDT us Eva Rosas DO LAB BLOOD ORDERABLES Final R esult [facility] [address] [place] [address] [phone] * Lipid Panel, Standard (02/27/2025 8:16 AM EDT) Triglycerides 76 <150 mg/dL [facility] Comment:Desirable Triglyceri de: less than 150 mg/dLBorderline High Triglyceride 150-199 mg/dLHigh Triglyceride: 200-499 mg/dLVery High Triglyceride: greater than or equal to 5OO mg/dL Cholesterol 115 <200 mg/dL [facility] Comment:Desirable Cholestero l: less than 200 mg/dLBorderline High Cholesterol: 200-239 mg/dLHigh Cholesterol: greater than 239 mg/dL LDL Cholesterol Calculated 59 <100 mg/dL [facility] Comment:Desirable LDL: less than 100 mg/dLNear Optimal/Above Optimal LDL: 110- 129 mg/dLBorderline High LDL: 130-159 mg/dLHigh LDL: 160-189 mg/dLVery High LDL: greater than or equal to 190 mg/dL HDL Cholesterol 41 >40 mg/dL [facility] Comment:Desirable HDL: great er than 40 mg/dL Note: This HDL assay may give artificially low results in patients with liver disease. Blood Venous blood specimen / Unknown 02/27/2025 8:16 AM EDT 02/27/2025 11:08 AM EDT us Eva Rosas DO LAB BLOOD ORDERABLES Final R esult [facility] [address] [place] [address] [phone] from Last 3 Months or Most Recently Relevant to Health Maintenance Insurance [employer] (HMO D-SNP) JESSICA LYONS [id number] [place] [phone] Advance Directives Documents on File Type Date Recorded Patient Manager Of Loss Prevention Operations Expl anation Power of Grievance And Appeals Specialist 07/24/2025 Health Car e Proxy Care Teams Configuration Specialist Relationship Specialty Start Date End Date Eva Rosas DO [address] [place] [address] PCP - General Family Medicine 10/08/12
--- OUTSIDE RECORDS SUMMARY | 2025-08-11 08:27 | XMS_ITS | Encounter Summary ---
Author Organization [email or web address] Address [address] [facility] [address] 7t [place] [address] Care Team Providers Care Assistant Sales Director Name Role Phone Eva Rosas DO Primary Care Provider + [phone] Angela Maki PharmD Unavailable [phone] Reason for Visit * Reason Comments Med Refill Encounter Details Date Type Department Care Team (Late st Contact Info) Description 09/29/2023 Refill [facility] CHC MED & PEDS [address] [place] [address] Eva Rosas DO [address] [place] [address] Hypertension, unspecified type Social History Tobacco Use [...] Description 09/19/2025 1:30 PM EST Office Visit [facility] OPTOMETRY [address] [place] [address] Hola, Acacia, OD [address] [place] [address] 09/29/2025 1:15 PM EST Office Visit [facility] MEDICINE [address] [place] [address] Sarah Whitehead MD [address] [place] [address] documented as of this encounter Visit Diagnoses Diagnosis Hypertension, unspecified type documented in this encounter Additional Health Concerns Assessment Noted Time PHQ-9 Depression Total Score: 0 10/31/19 23 11:46 AM EST documented as of this encounter Care Teams Assistant Sales Director Relationship Specialty Start Date End Date Eva Rosas DO [address] [place] [address] PCP - General Family Medicine 10/08/12 Angela Maki PharmD [address] [place] [address] Pharmacist Internal Medicine 10/27/23 01/26/24 documented as of this encounter
--- OUTSIDE RECORDS SUMMARY | 2025-08-11 08:27 | XMS_ITS | Clinical Summary ---
Author Organization [facility] Address [address] [place] [address] Phone Care Team Providers Care Oncologist Name Role Phone Lakshmi Rosasfer Primary Care [...] Hemoglobin A1C 02/01/2023 11/03/2022, 03/2023 Influenza Vaccine (#1) 2025 9, 09/07/2018, 08/28/2017, Additional history exists Pneumococcal Vaccine: 50+ Years Completed 05/30/2015, 04/05/2009 Pneumococcal Vaccine: Peds (0 to 5 Years) and At-Risk Patients (6 to 49 Years) Discontinued 05/30/2015, 04/05/2009 Hepatitis B Vaccine Aged Out 08/27/2015, 04/04/2015, 02/26/2015 No longer eligible based on patient's age to complete this topic Insurance [facility] ([id number]) JESSICA LYONS [id number] [place] [id number] [facility] ([id number]) JESSICA LYONS [id number] Care Teams Oncologist Relationship Specialty Start Date End Date Eva Rosas DO PCP - General 11/05/20
== END 2025-08-11 08:15 | disposition home or self-care (01) ==
LOC: HO.HHCL 08:14
PROVIDERS: PCP Family Medicine; Visit Provider Internal Medicine Hypertension Specialist
DX: Z13.89 Encounter for screening for other disorder (principal)
CPT/HCPCS: 36415

== ENCOUNTER 2025-08-14 13:04 | Outpatient (AMB) | payer OTHER, SELFPAY ==
--- NOTE | 2025-08-14 13:08 | HO.NEPHOV ---
Vital Signs 08/14/25 13:09 Height 5 ft 9 in Weight 180 lb BMI 26.6 BP 120/66 Blood Pressure Location Lt brachial Position Sitting Pulse 62 Pulse Source Pulse Oximeter Pulse Oximetry (%) 97 Oxygen Delivery Method Room Air Intake Visit Reasons: 6 MO FU-Conf Avionics Electronics Technician Required: Yes Avionics Electronics Technician Name: Kendra [id number] Accompanied by: Self / Same As Patient Allergies No Known Allergies Allergy (Mild, Verified 08/14/25 13:12) NONE Medication List - Last Reconciled 08/14/25 by Gee Bello MD aspirin 81 mg PO DAILY atorvastatin 40 mg PO DAILY cholecalciferol (vitamin D3) 50 mcg PO DAILY cyanocobalamin (vitamin B-12) 1,000 mcg PO DAILY empagliflozin (Jardiance) 25 mg PO DAILY metoprolol succinate ER (Toprol XL) 50 mg PO DAILY HPI Comments Details: 84 yr old man with HTN and DM with CKD BP was low Lisinopril was stopped ,- recent BP is normal No new issues today 08/14/25 - The patient is an 84-year-old male presenting for CKD follow up - Recent blood test canceled; new test planned for kidney function. [facility] Medical History Thoracic aortic aneurysm without rupture Diastolic dysfunction LVH (left ventricular hypertrophy) HTN (hypertension) Diabetes Surgical History H/O hernia repair Family History Mother CVD (cardiovascular disease) Sister Breast cancer Social History Alcohol intake: former Physical Exam Vital Signs: Last Vital Signs Pulse 62 08/14/25 13:09 BP 120/66 08/14/25 13:09 Pulse Ox 97 08/14/25 13:09 Oxygen Delivery Method Room Air 08/14/25 13:09 BMI result Body Mass Index 26.6 Comfortable Neck supple no JVD. Lungs entry equal no rales. Heart S1-S2 heard no gallop or rub. Abdomen soft nontender. Neuro alert awake oriented. No asterixis. Extremities no edema. Results Reviewed Nephrology Results: Hgb, (14.0-18.0) 13.6 g/dl L 02/27/25 WBC, (4.8-10.8) 8.6 X10*3/uL 02/27/25 Plt Count, (160-400) 178 X10*3/uL 02/27/25 Sodium, (135-145) 139 mmol/L 02/27/25 Potassium, (3.3-5.1) 4.3 mmol/L 02/27/25 Chloride, (96-108) 104 mmol/L 02/27/25 Carbon Dioxide, (22-29) 27 mmol/L 02/27/25 BUN, (9-16) 20 mg/dL H 02/27/25 Creatinine, (0.5-1.4) 1.44 mg/dL H 02/27/25 Calcium, (8.4-10.2) 9.7 mg/dL 02/27/25 Urine Creatinine 90.03 mg/dL 02/27/25 Assessment & Plan Assessment & Plan (1) CKD (chronic kidney disease) stage 3, GFR 30-59 ml/min: Code(s): N18.30 - Chronic kidney disease, stage 3 unspecified Category: Medical Plan 84 yr old man with HTN and CKD Creatinine is back to baseline after stopping Lisinopril eGFR is about 57 ml/mt Repeat lab work ordered BP is better controlled No hypotension No significant proteinuria Keep BP < 130/80 Avoid nephrotoxins Stay on low salt diet Encouraged to increase PO fluids Would benefit from SGLT-2 inhibitors Orders: Orders Basic Metabolic Panel Today N18.30 - Chronic kidney disease, stage 3 unspecified Coding Level of Care Code Est Pt Level 4 (98024) Diagnoses CKD (chronic kidney disease) stage 3, GFR 30-59 ml/min N18.30
[2025-08-14 13:09] VITALS: BP 120/66; PULSE 62; O2SAT 97; BMI 26.6
--- OUTSIDE RECORDS SUMMARY | 2025-08-14 15:56 | XMS_ITS | Encounter Summary ---
Author Organization [employer] Address [address] [facility] 7t [place] [address] Care Team Providers Care Fruit Shipper Name Role Phone Eva Rosas DO Primary Care Provider + [phone] Angela Maki PharmD Unavailable [phone] Encounter Details Date Type Department Care Team ([facility] st Contact Info) Description 10/28/[address] [facility] [address] [place] [address] Eva Rosas DO [address] [place] [address] Social History Tobacco Use Types Packs/Day Years [...] Description 09/19/2025 1:30 PM EST Office Visit [facility] OPTOMETRY [address] [place] [address] Hola, Acacia, OD [address] [place] [address] 09/29/2025 1:15 PM EST Office Visit [facility] [address] [place] [address] Sarah Whitehead MD [address] [place] [address] documented as of this encounter Goals Goal [...] documented as of this encounter Care Teams Fruit Shipper Relationship Specialty Start Date End Date Eva Rosas DO [address] [place] [address] PCP - General Family Medicine 10/08/12 Puia, Angela, PharmD [address] [place] [phone] Pharmacist Internal Medicine 10/27/23 01/26/24 documented as of this encounter
--- OUTSIDE RECORDS SUMMARY | 2025-08-14 15:56 | XMS_ITS | Clinical Summary ---
Author Organization [employer] Address [address] [facility] 7t [place] [address] Care Team Providers Care Spar Cap Beveler Name Role Phone JeffEva palomares Primary Care Provider + [phone] Allergies No known active allergies Medications metoprolol succinate XL (Toprol-XL) 100 MG 24 hr tabletIndicatio ns:Hypertension , unspecified type TAKE 1 TABLET BY MOUTH EVERY MORNING 90 tablet 3 10/04/20 24 Active Blood Glucose Monitoring Suppl (FreeStyle [place] Lite) w/Device kit TEST BLOOD SUGAR ONCE DAILY DIRECTED 1 kit 10/12/20 24 Active Tradjenta 5 MG tabletIndicatio ns:Type 2 diabetes mellitus with diabetic neuropathy, unspecified whether terminal operations manager insulin use (HCC) TAKE 1 TABLET BY MOUTH EVERY MORNING 30 tablet 11/22/19 25 Active cyanocobalamin (Vitamin B-12) 1000 MCG tablet TAKE 1 TABLET BY MOUTH EVERY MORNING 30 tablet 11/30/19 25 Active FREESTYLE LITE test stripIndication s:Type 2 diabetes mellitus with diabetic nephropathy, unspecified whether terminal operations manager insulin use (HCC) USE DIRECTED TO TEST [...] diabetes mellitus with diabetic neuropathy, unspecified whether terminal operations manager insulin use (HCC) USE DIRECTED TO TEST BLOOD SUGAR THREE TIMES DAILY 100 each 11 07/28/20 25 Active TRUEplus Lancets 33G miscIndications :Type 2 diabetes mellitus with diabetic neuropathy, unspecified whether retirement insulin use (HCC) TEST BLOOD SUGAR 3 [...] Type Department Care Team Description 07/27/2025 Refill [facility] [address] [place] [address] Eva Rosas DO Type 2 diabetes mellitus with diabetic neuropathy, unspecified whether terminal operations manager insulin use (HCC) 06/22/2025 Refill [facility] [address] [place] [address] Eva Rosas DO Vitamin D deficiency 05/29/2025 Refill [facility] [address] [place] [address] Eva Rosas DO from Last 3 Months [...] Description 09/19/2025 1:30 PM EST Office Visit [facility] OPTOMETRY [address] [place] [address] Hola, Acacia, OD [address] [place] [address] 09/29/2025 1:15 PM EST Office Visit [facility] [address] [place] [address] Sarah Whitehead MD [address] [place] [address] Health Maintenance Due Date Last Done Comments [...] diabetes mellitus with diabetic neuropathy, unspecified whether retirement insulin use ([facility]) Essential hypertension Other hyperlipidemia Stage 3 chronic kidney disease, unspecified whether stage 3a or 3b CKD ([facility]) Anemia, unspecified type Elevated ferritin level Positive colorectal cancer screening using Cologuard test Skin lesions Healthcare maintenance LIPID PANEL, STANDARD Routine 02/27/2025 8:16 AM EDT Type 2 diabetes mellitus with diabetic neuropathy, unspecified whether terminal operations manager insulin use ([facility]) Essential hypertension Other hyperlipidemia Stage 3 chronic kidney disease, unspecified whether stage 3a or 3b CKD ([facility]/HCC) Anemia, unspecified type Elevated ferritin level Positive colorectal cancer screening using Cologuard test Skin lesions Healthcare maintenance from Last 3 Months or Most Recently Relevant to Health Maintenance Results * (ABNORMAL) Hemoglobin A1c (02/27/2025 8:16 AM EDT) Hemoglobin A1c 7.2(H) <6.0 % [facility] Comment:Hemoglobin A1C Refer ence Range Adults: 4.8 - 6.0 % Non diabetic: < 6.0 % Goal: < 7.0 %Additional Action Suggested: > 8.0 %Note: Hemoglobin A1c results are invalid for patients with abnormal amounts of HbF. Blood transfusions may impact the HbA1c concentration in the patient sample. Estimated Average Glucose 160 mg/dL [facility] Comment:eAG = Estimated ave rage glucose which is %A1C expressed asaverage glucose, using the formula of the B2L-IhixtzkQxkdmcn Glucose study (ADAG), Diabetes Care, Vol.31,#8,May. 2007 Blood Venous blood specimen / Unknown 02/27/2025 8:16 AM EDT 02/27/2025 11:08 AM EDT us Eva Rosas DO LAB BLOOD ORDERABLES Final R esult [facility] [address] [place] [address] [phone] * Lipid Panel, Standard (02/27/2025 8:16 AM EDT) Triglycerides 76 <150 mg/dL [facility] Comment:Desirable Triglyceri de: less than 150 mg/dLBorderline High Triglyceride 150-199 mg/dLHigh Triglyceride: 200-499 mg/dLVery High Triglyceride: greater than or equal to 5OO mg/dL Cholesterol 115 <200 mg/dL [facility] Comment:Desirable Cholestero l: less than 200 mg/dLBorderline High Cholesterol: 200-239 mg/dLHigh Cholesterol: greater than 239 mg/dL LDL Cholesterol Calculated 59 <100 mg/dL [facility] Comment:Desirable LDL: less than 100 mg/dLNear Optimal/Above Optimal LDL: 110- 129 mg/dLBorderline High LDL: 130-159 mg/dLHigh LDL: 160-189 mg/dLVery High LDL: greater than or equal to 190 mg/dL HDL Cholesterol 41 >40 mg/dL [facility] Comment:Desirable HDL: great er than 40 mg/dL Note: This HDL assay may give artificially low results in patients with liver disease. Blood Venous blood specimen / Unknown 02/27/2025 8:16 AM EDT 02/27/2025 11:08 AM EDT us Eva Rosas DO LAB BLOOD ORDERABLES Final R esult [facility] [address] [place] [address] [phone] from Last 3 Months or Most Recently Relevant to Health Maintenance Insurance [employer] (HMO D-SNP) [place] [id number] [place] [id number] * Guarantor: Car Hartmann Account Type Relation to Patient Date of Phone Billing Address Personal/Family Self [address] [place] [phone] * Guarantor: Car Hartmann Account Type Relation to Patient Date of Phone Billing Address Personal/Family Self [address] [place] [phone] Advance Directives Documents on File Type Date Recorded Patient Food Safety Auditor Expl anation Power of Price Clerk 07/24/2025 Health Car e Proxy Care Teams Spar Cap Beveler Relationship Specialty Start Date End Date Eva Rosas DO [address] [place] [phone] PCP - General Family Medicine 10/08/12
--- OUTSIDE RECORDS SUMMARY | 2025-08-14 15:56 | XMS_ITS | Clinical Summary ---
Author Organization [facility] Address [address] [place] [address] Phone Care Team Providers Care Barrel Lathe Operator Inside Name Role Phone Lakshmi Rosasfer Primary Care [...] patient's age to complete this topic Insurance [facility] ([id number]) JESSICA [place] [id number] [place] [phone] [facility] ([id number]) [place] [id number] Care Teams Barrel Lathe Operator Inside Relationship Specialty Start Date End Date Eva Rosas DO PCP - General 11/05/20
--- OUTSIDE RECORDS SUMMARY | 2025-08-14 15:57 | XMS_ITS | Encounter Summary ---
Author Organization [employer] Address [address] [facility] [address] 7[address] [place] [address] Care Team Providers Care Physician'S Aide Name Role Phone Eva Rosas DO Primary Care Provider + [phone] Angela Maki PharmD Unavailable [phone] Reason for Visit * Reason Comments Med Refill Encounter Details Date Type Department Care Team (Late st Contact Info) Description 09/29/2023 Refill [facility] & PEDS [address] [place] [address] Eva Rosas DO [address] [place] [address] Hypertension, unspecified type Social History Tobacco Use [...] Description 09/19/2025 1:30 PM EST Office Visit [facility] OPTOMETRY [address] [place] [address] Hola, Acacia, OD [address] [place] [address] 09/29/2025 1:15 PM EST Office Visit [facility] MEDICINE [address] [place] [address] Sarah Whitehead MD [address] [place] [address] documented as of this encounter Visit Diagnoses Diagnosis Hypertension, unspecified type documented in this encounter Additional Health Concerns Assessment Noted Time PHQ-9 Depression Total Score: 0 10/31/19 23 11:46 AM EST documented as of this encounter Care Teams Physician'S Aide Relationship Specialty Start Date End Date Eva Rosas DO [address] [place] [address] PCP - General Family Medicine 10/08/12 Angela Maki PharmD [address] [place] [address] Pharmacist Internal Medicine 10/27/23 01/26/24 documented as of this encounter
== END 2025-08-14 13:24 | disposition home or self-care (01) ==
PROVIDERS: PCP Family Medicine; Visit Provider Internal Medicine Hypertension Specialist
DX: N18.30 Chronic kidney disease, stage 3 unspecified (principal)
CPT/HCPCS: 99214

== ENCOUNTER → 2025-08-14 13:04 | Outpatient (BNVA) | payer OTHER, SELFPAY | PROVIDERS: PCP Family Medicine; Visit Provider Internal Medicine Hypertension Specialist | DX: I10 Essential (primary) hypertension (principal); N18.30 Chronic kidney disease, stage 3 unspecified; E11.9 Type 2 diabetes mellitus without complications | CPT/HCPCS: 99212 ==

== ENCOUNTER 2025-08-17 08:09 | Outpatient (REF) | payer OTHER, SELFPAY ==
--- OUTSIDE RECORDS SUMMARY | 2025-08-17 08:30 | XMS_ITS | Clinical Summary ---
Author Organization [employer] Address [address] [facility] 7t [place] [address] Care Team Providers Care Metal Sheet Roller Operator Name Role Phone JeffEva palomares Primary Care Provider + [phone] Allergies No known active allergies Medications metoprolol succinate XL (Toprol-XL) 100 MG 24 hr tabletIndicatio ns:Hypertension , unspecified type TAKE 1 TABLET BY MOUTH EVERY MORNING 90 tablet 3 10/04/20 24 Active Blood Glucose Monitoring Suppl (FreeStyle [place] Lite) w/Device kit TEST BLOOD SUGAR ONCE DAILY DIRECTED 1 kit 10/12/20 24 Active Tradjenta 5 MG tabletIndicatio ns:Type 2 diabetes mellitus with diabetic neuropathy, 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 (HCC) TAKE 1 TABLET BY MOUTH EVERY MORNING 30 tablet 11/22/19 25 Active cyanocobalamin (Vitamin B-12) 1000 MCG tablet TAKE 1 TABLET BY MOUTH EVERY MORNING 30 tablet 11/30/19 25 Active FREESTYLE LITE test stripIndication s:Type 2 diabetes mellitus with diabetic nephropathy, 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 (HCC) USE DIRECTED TO TEST [...] diabetes mellitus with diabetic neuropathy, 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 (HCC) USE DIRECTED TO TEST BLOOD SUGAR THREE TIMES DAILY 100 each 11 07/28/20 25 Active TRUEplus Lancets 33G miscIndications :Type 2 diabetes mellitus with diabetic neuropathy, unspecified whether half-way insulin use (HCC) TEST BLOOD SUGAR 3 [...] Type Department Care Team Description 07/27/2025 Refill [facility] [address] [place] [address] Eva Rosas DO Type 2 diabetes mellitus with diabetic neuropathy, 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 (HCC) 06/22/2025 Refill [facility] [address] [place] [address] Eva Rosas DO Vitamin D deficiency 05/29/2025 Refill [facility] [address] [place] [address] Eva Rosas DO from Last 3 Months [...] Description 09/19/2025 1:30 PM EST Office Visit [facility] OPTOMETRY [address] [place] [address] Hola, Acacia, OD [address] [place] [address] 09/29/2025 1:15 PM EST Office Visit [facility] [address] [place] [address] Sarah Whitehead MD [address] [place] [address] Health Maintenance Due Date Last Done Comments [...] diabetes mellitus with diabetic neuropathy, unspecified whether half-way insulin use ([facility]) Essential hypertension Other hyperlipidemia Stage 3 chronic kidney disease, unspecified whether stage 3a or 3b CKD ([facility]) Anemia, unspecified type Elevated ferritin level Positive colorectal cancer screening using Cologuard test Skin lesions Healthcare maintenance LIPID PANEL, STANDARD Routine 02/27/2025 8:16 AM EDT Type 2 diabetes mellitus with diabetic neuropathy, 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 ([facility]) Essential hypertension Other hyperlipidemia Stage 3 chronic kidney disease, unspecified whether stage 3a or 3b CKD ([facility]CC) Anemia, unspecified type Elevated ferritin level Positive colorectal cancer screening using Cologuard test Skin lesions Healthcare maintenance from Last 3 Months or Most Recently Relevant to Health Maintenance Results * (ABNORMAL) Hemoglobin A1c (02/27/2025 8:16 AM EDT) Hemoglobin A1c 7.2(H) <6.0 % [facility] Comment:Hemoglobin A1C Refer ence Range Adults: 4.8 - 6.0 % Non diabetic: < 6.0 % Goal: < 7.0 %Additional Action Suggested: > 8.0 %Note: Hemoglobin A1c results are invalid for patients with abnormal amounts of HbF. Blood transfusions may impact the HbA1c concentration in the patient sample. Estimated Average Glucose 160 mg/dL [facility] Comment:eAG = Estimated ave rage glucose which is %A1C expressed asaverage glucose, using the formula of the X1N-UvpojxiAfplrrm Glucose study (ADAG), Diabetes Care, Vol.31,#8,May. 2007 Blood Venous blood specimen / Unknown 02/27/2025 8:16 AM EDT 02/27/2025 11:08 AM EDT us Eva Rosas DO LAB BLOOD ORDERABLES Final R esult [facility] [address] [place] [address] [phone] * Lipid Panel, Standard (02/27/2025 8:16 AM EDT) Triglycerides 76 <150 mg/dL [facility] Comment:Desirable Triglyceri de: less than 150 mg/dLBorderline High Triglyceride 150-199 mg/dLHigh Triglyceride: 200-499 mg/dLVery High Triglyceride: greater than or equal to 5OO mg/dL Cholesterol 115 <200 mg/dL [facility] Comment:Desirable Cholestero l: less than 200 mg/dLBorderline High Cholesterol: 200-239 mg/dLHigh Cholesterol: greater than 239 mg/dL LDL Cholesterol Calculated 59 <100 mg/dL [facility] Comment:Desirable LDL: less than 100 mg/dLNear Optimal/Above Optimal LDL: 110- 129 mg/dLBorderline High LDL: 130-159 mg/dLHigh LDL: 160-189 mg/dLVery High LDL: greater than or equal to 190 mg/dL HDL Cholesterol 41 >40 mg/dL [facility] Comment:Desirable HDL: great er than 40 mg/dL Note: This HDL assay may give artificially low results in patients with liver disease. Blood Venous blood specimen / Unknown 02/27/2025 8:16 AM EDT 02/27/2025 11:08 AM EDT us Eva Rosas DO LAB BLOOD ORDERABLES Final R esult [facility] [address] [place] [address] [phone] from Last 3 Months or Most Recently Relevant to Health Maintenance Insurance [employer] (HMO D-SNP) [place] [id number] [place] [id number] Advance Directives Documents on File Type Date Recorded Patient Hand Former Expl anation Power of Door Slinger 07/24/2025 Health Car e Proxy Care Teams Metal Sheet Roller Operator Relationship Specialty Start Date End Date Eva Rosas DO [address] [place] [address] PCP - General Family Medicine 10/08/12
--- OUTSIDE RECORDS SUMMARY | 2025-08-17 08:30 | XMS_ITS | Encounter Summary ---
Author Organization [employer] Address [address] [facility] [address]t [place] [address] Care Team Providers Care Tax Collection Coordinator Name Role Phone Eva Rosas DO Primary Care Provider + [phone] Angela Maki PharmD Unavailable [phone] Encounter Details Date Type Department Care Team ([facility] st Contact Info) Description 10/28/2023 Abstract [facility] [address] [place] [address] Eva Rosas DO [address] [place] [address] Social History Tobacco Use Types Packs/Day Years [...] Description 09/19/2025 1:30 PM EST Office Visit [facility] OPTOMETRY [address] [place] [address] Hola, Acacia, OD [address] [place] [address] 09/29/2025 1:15 PM EST Office Visit [facility] MEDICINE [address] [place] [address] Sarah Whitehead MD [address] [place] [address] documented as of this encounter Goals Goal [...] documented as of this encounter Care Teams Tax Collection Coordinator Relationship Specialty Start Date End Date Eva Rosas DO [address] [place] [address] PCP - General Family Medicine 10/08/12 Puia, Angela, PharmD [address] [place] [address] Pharmacist Internal Medicine 10/27/23 01/26/24 documented as of this encounter
--- OUTSIDE RECORDS SUMMARY | 2025-08-17 08:30 | XMS_ITS | Encounter Summary ---
Author Organization [employer] Address [address] 7[address] [place] [address] Care Team Providers Care Court Usher Name Role Phone Eva Rosas DO Primary Care Provider + [phone] Angela Maki PharmD Unavailable [phone] Reason for Visit * Reason Comments Med Refill Encounter Details Date Type Department Care Team (Late st Contact Info) Description 09/29/2023 Refill [facility] MED & PEDS [address] [place] [address] Eva Rosas DO [address] [place] [address] Hypertension, unspecified type Social History Tobacco Use [...] Description 09/19/2025 1:30 PM EST Office Visit [facility] OPTOMETRY [address] [place] [address] Hola, Acacia, OD [address] [place] [address] 09/29/2025 1:15 PM EST Office Visit [facility] MED[facility]INE [address] [place] [address] Sarah Whitehead MD [address] [place] [address] documented as of this encounter Visit Diagnoses Diagnosis Hypertension, unspecified type documented in this encounter Additional Health Concerns Assessment Noted Time PHQ-9 Depression Total Score: 0 10/31/19 23 11:46 AM EST documented as of this encounter Care Teams Court Usher Relationship Specialty Start Date End Date Eva Rosas DO [address] [place] [address] PCP - General Family Medicine 10/08/12 Angela Maki PharmD [address] [place] [address] Pharmacist Internal Medicine 10/27/23 01/26/24 documented as of this encounter
[2025-08-17 12:03] LABS: Alanine Aminotransferase 27 U/L (0-40); Albumin Level 4.9 g/dL (3.5-5.0); Alkaline Phosphatase 108 U/L (39-117); Anion Gap 9 (12-20); Aspartate Amino Transferase 23 U/L (5-37); Blood Urea Nitrogen 20 mg/dL (9-16); Calcium 9.8 mg/dL (8.4-10.2); Carbon Dioxide 29 mmol/L (22-29); Chloride 107 mmol/L (96-108); Estimated Glomerular Filt Rate 43; Potassium 4.3 mmol/L (3.3-5.1); Sodium 141 mmol/L (135-145); Total Protein 8.2 g/dL (6.5-8.0)
== END 2025-08-17 08:10 | disposition home or self-care (01) ==
LOC: HO.HHCL 08:09
PROVIDERS: PCP Family Medicine; Visit Provider Internal Medicine Hypertension Specialist
DX: N18.30 Chronic kidney disease, stage 3 unspecified (principal)
CPT/HCPCS: 36415; 80053